=== PATIENT | male | born 1965 | race Caucasian/White ===

== ENCOUNTER 2018-09-01 15:39 | Inpatient (IN) | payer BC, SELFPAY ==
[2018-09-01] VITALS (11 sets, daily range): BP systolic 163–220; BP diastolic 100–129; PULSE 59–84; RESP 14–20; TEMP 36.1–36.4; O2SAT 95–96; BMI 40.6; BMI 40.1; BMI 40.2
--- NOTE | 2018-09-01 16:03 | CT_ITS ---
STUDY: CT BRAIN WITHOUT CONTRAST REASON FOR EXAM: Male, 53 years old. Dizziness RADIATION DOSAGE (If Supplied By Facility): DLP = ( 815.79 ) mGycm TECHNIQUE: Transaxial CT imaging of the brain was performed without administration of intravenous contrast material. Individualized dose optimization techniques were used for this CT. COMPARISON: None. FINDINGS: There is no acute bleed or infarct. There are normal white matter tracts. The ventricles are normal in configuration. There is no hydrocephalus. The visualized paranasal sinuses are clear. The mastoid air cells are well aerated. There is no skull fracture. CT/Brain/Head without Contrast IMPRESSION: No acute intracranial abnormality. Electronically Signed: Sky Sampson, at 16:53 EDT Tel , Service support ,
--- NOTE | 2018-09-01 16:10 | ED.VISSUMM ---
- ER Visit Summary Date of Service: 09/01/18 Chief Complaint: Dizziness History of Present Illness: The patient is a 53 M who complains of dizziness. Started yesterday his family member then noticed that his right eye was deviated outward. He does admit to double vision. He denies any headache, head trauma or LOC. No chest pain or shortness of breath. He has no medical problems, but he has not been to a doctor in many years. He does not wear any corrective lenses. When he was working. He was working outside and felt hot so he drank 2 bottles of water and went to the air conditioning and felt better. Physical Examination: Vital signs reviewed. Well-developed male in no distress. At rest his right eye is deviated outward. His accommodation is intact. He does have bilateral nystagmus on extraocular movement. His heart is regular rate and rhythm. His lungs are clear to auscultation bilaterally. Abdomen soft and nontender. Skin exam reveals no rashes. His neurologic exam other than the eye findings is normal. Test Results: Labs are normal except for potassium 3.1. Glucose 135. CAT scan of the head and CTA of the head is normal. Emergency Department Course and Treatment: The patient does have diplopia, likely caused by the right eye deviation. I spoke with Dr. Karimi with ophthalmology. He recommended the CTA because sometimes he has seen that aneurysms can cause this type of eye deviation. This was obtained and is normal. He also stated a high blood pressure could also cause this. He was given labetalol and his blood pressure came down to 170/110. He still has the ophthalmic symptoms. My concern is that he could have another pathology. I feel he should be admitted for MRI and blood pressure control. I spoke with hospitalist will admit the patient Treatment Plan: [] Disposition: Admit Impression: Diplopia, right eye deviation, hypertensive urgency This note was generated with [employer] dictation software. It may contain incorrect words, spelling, and punctuation that were not noted in review of the chart prior to signing
[2018-09-01 16:27] LABS: Absolute Lymphocyte Count 2.01 X10^3/ul (0.83-4.51); Basophil# 0.02 X10^3/uL; Basophil% 0.2 % (0-1); Eosinophil# 0.12 X10^3/uL; Eosinophils% 1.2 % (0-5); Lymphocyte # 2.01 X10^3/ul (4.0); Lymphocyte % 20.3 % (19-41); Mean Corp Hgb Conc 34.9 g/gl (32-36); Mean Corpuscular Hgb 27.9 pg (27.0-32.0); Mean Corpuscular Volume 80.1 fL (80-94); Mean Platelet Vol. 10.8 fl (6.2-12.0); Monocyte# 0.75 X10^3/uL; Monocyte% 7.6 % (0-10); Neutrophil # 6.98 X10^3/uL (2.7-7.7); Neutrophil % 70.5 % (47-70); Platelet Count 279 K/mm3 (150-450); RBC Distribution Width CV 13.4 % (11.6-14.6); RBC Distribution Width SD 38.8 fl (35.1-43.9); Red Blood Count 5.37 M/mm3 (4.6-6.2); White Blood Count 9.9 K/mm3 (4.4-11.0)
[2018-09-01] MEDS: 0.9% Normal Saline 1,000 ML 1000 ML IV (16:29)
[2018-09-01 16:32] LABS: POSITIVE COUNT NO; POSITIVE DIFFERENTIAL NO; POSITIVE MORPHOLOGY NO
[2018-09-01 16:41] LABS: ALB/GLOB Ratio 0.9 RATIO (0.9-2.4); AST(SGOT) 19 U/L (15-37); Alanine Aminotransfer ALT/SGPT 33 U/L (16-61); Albumin, Serum 3.6 g/dL (3.2-5.0); Alkaline Phosphatase 125 U/L (45-117); Anion Gap 5 (5-15); BUN 12 mg/dL (7-18); BUN/Creat Ratio 12.6 RATIO (10-20); Calcium,Total 8.7 mg/dL (8.5-10.1); Chloride 105 mmol/L (98-107); Creatinine, Serum 0.95 mg/dL (0.70-1.30); EST Glomerular Filtration Rate 88 mL/min (>60); Est Glom Filt Rate - Afr Amer 107 mL/min (>60); Globulin 3.9 g/dL (2.2-4.2); Glucose 135 mg/dL (74-106); Potassium 3.1 mmol/L (3.5-5.1); Protein, Total 7.5 g/dL (6.4-8.2); Sodium Level 137 mmol/L (136-145)
--- NOTE | 2018-09-01 17:07 | CT_ITS ---
STUDY: CTA OF THE BRAIN REASON FOR EXAM: Male, 53 years old. Dizziness. Confusion. Diaphoresis. RADIATION DOSAGE (If Supplied By Facility): CTDIvol = ( 16.52 ) mGy, DLP = ( 406.21 ) mGycm TECHNIQUE: CT angiography was performed with a multi-detector CT scanner. Data acquisition was obtained from the skull base through the vertex following intravenous administration of 100mL IV Isovue 370. MIP images were reconstructed from the axial data set. Post-processing of the angiographic images was performed, with multiplanar reformation and 3D reconstruction. Individualized dose optimization techniques were used for this CT. COMPARISON: CT FINDINGS: Normal bilateral petrous carotid arteries. Normal right cavernous carotid artery with a normal supraclinoid bifurcation. Normal left cavernous carotid artery with a normal supraclinoid bifurcation. Normal right A1 segments of the anterior cerebral artery. Normal left A1 segments of the anterior cerebral artery. Normal intact anterior communicating artery (ACOM). Normal bilateral A2 segments of the anterior cerebral arteries. Normal right M1 and M2 segments of the middle cerebral arteries, with a normal M1 bifurcation. Normal left M1 and M2 segments of the middle cerebral arteries, with a normal M1 bifurcation. There is non-visualization of the right posterior communicating artery (PCOM). There is a persistent origin of the left posterior cerebral artery with absence of the posterior communicating artery (PCOM). Normal bilateral vertebral arteries. Normal basilar artery with a normal basilar bifurcation. The visualized bilateral superior cerebellar (SCA) arteries are normal. Normal bilateral P1, P2 and visualized P3 segments of the posterior cerebral arteries. There is no demonstrated aneurysm of the [place]. There is no demonstrated abnormality of the visualized brain. CT/CTA Head W/WO Contrast IMPRESSION: Normal [place] without a demonstrated aneurysm or hemodynamically significant stenosis. Electronically Signed: Kenneth Benson MD at 18:04 EDT , Service support ,
--- NOTE | 2018-09-01 19:11 | HP.PCM_ITS ---
Problem List (1) Cranial third nerve paralysis, right Status: Acute (2) Hypertensive emergency Status: Acute History of Present Illness Date of Admission: 09/01/18 Chief Complaint: diplopia The patient is a 53 year old M who was in his normal state of health up until yesterday when he started feeling dizzy and just weak overall. Patient was having some diplopia at that time. I was able drink some water and his symptoms resolved and was able to drive back home. Today, symptoms recurred but did not get better despite drinking fluids. Patient was having persistent diplopia. Sent to the emergency room for evaluation. In the emergency room, blood pressure was noted to be 220/129. Patient also had his right eye deviated laterally. He received 20 mg of IV labetalol which did improve his blood pressure into the 180s but still persisted to have diplopia. Dr. Karimi, of ophthalmology, was contacted and advised a CT Ilsa Dai to evaluate for an aneurysm. Patient did have a head CT was negative and a CT angiogram subsequently was also negative. The hospitalist service was contacted for admission for his diplopia and further stroke evaluation. Patient has never had this problem before. Patient denies any concurrent headache at this time but states that he is getting headache with his persistent diplopia. [] Past Medical History Medical History: Medical History (Last Updated 09/01/18 @ 19:15 by Shaquille Louie DO) Psoriasis L40.9 Allergies No Known Allergies Allergy (Verified 09/01/18 15:42) Home Medications: Ambulatory Orders Medication Instructions Recorded NK 09/01/18 Lives: With Family Smoking Status: Never smoker Tobacco Use: Non-smoker Alcohol: None Drugs: None - *Family History Maternal History Items: - - No stroke Review of Systems Constitutional: Reports: Weakness. Denies: Anorexia, Chills, Fever Eyes: Reports: Blurred vision - Does wear reading glasses, Double vision HEENT: Denies: Head Aches, Sinus Congestion, Sinus Drainage Cardiovascular: Denies: Chest Pain, Palpitations Respiratory: Denies: Cough, Shortness of breath at rest, Sputum production Gastrointestinal: Reports: Nausea. Denies: Abdominal Pain, Vomiting Genitourinary: Denies: Dysuria Musculoskeletal: Denies: Joint Pain, Joint Tenderness Skin: Reports: Rash - That may be psoriasis but is never followed up with dermatology. Involves his hands and also his elbows.. Denies: Wounds Neurological: Reports: Blurred vision, Double vision, Numbness - Has some numbness of his right fingertips today. Denies: Balance problems, Change in Speech, Slurred speech Psychiatric: Denies: Anxiety, Depression Endocrine: Denies: Change in Body Habitus, Heat/ Cold Intolerance Hematologic/ Lymphatic: Denies: Easy Bruising, Easy Bleeding, Hx of blood clot Comment: Patient states that he does snore. Patient lives with his mother and states that his mother has witnessed apnea while sleeping. A 10 point review of systems were negative except as mentioned in the history of present illness and the other review of systems. VTE Information - Inpt Only VTE Present on Admission: No VTE Mechan Device Prophylaxis: None VTE Pharm Prophylaxis ordered?: Yes Patient Problems: Active and Suspected Problems Cranial third nerve paralysis, right (Acute) Hypertensive emergency (Acute) - Physical Exam General: Alert, Cooperative, No apparent distress HEENT: Atraumatic, PERRLA, Normocephalic, - - Right eye is deviated down and out. Limited overall movement of his left side but may be related with just diminished sight in that eye. Oral: Moist Mucosa, No Gingival or Mucosal Lesions/ Ulcerations, - - Mallampati stage IV Neck: Negative Carotid Bruits, No Nodes, Thyroid Normal Size and Texture Lungs: Clear to auscultation, Normal air movement, No rhonchi, No wheeze, No rales Cardiovascular: Regular rate, Regular Rhythm, Normal S1, Normal S2, No murmurs Abdomen: Bowel Sounds Present, Soft, Non Tender, Non-Distended, No Hepato- splenomegaly Extremities: No edema, No Calf Tenderness Skin: - - psoriatic lesions noted on his lateral hands. Also some what appears to be some vitiligo involving his hands 2. No psoriatic lesions involving his elbows that I could see Musculoskeletal: No Tenderness to Palpation of Joints or Extremities, No Muscle Wasting Neurological: Cranial nerves II-XII grossly intact - Except right 3rd cranial nerve palsy, Motor Exam 5/5 strength throughout, Sensory exam intact to light touch and pain, Coordination normal Psych/Mental Status: Normal Affect, Appropriate Vital Signs Temp Pulse Resp BP Pulse Ox 36.1 C L 63 19 H 181/107 H 96 09/01/18 15:40 09/01/18 18:45 09/01/18 18:45 09/01/18 18:45 09/01/18 18:45 Oxygen Delivery Method Room Air Weight: 121.3 kg Body Mass Index (BMI) 40.6 Laboratory Tests Past 24 Hrs 09/01/18 09/01/18 16:15 16:15 WBC 9.9 RBC 5.37 Hgb 15.0 Hct 43.0 MCV 80.1 MCH 27.9 MCHC 34.9 RDW 13.4 RDW Differential 38.8 Plt Count 279 MPV 10.8 Immature Gran % (Auto) 0.200 Neut % (Auto) 70.5 H Lymph % (Auto) 20.3 [place] % (Auto) 7.6 Eos % (Auto) 1.2 Baso % (Auto) 0.2 Absolute Neuts (auto) 7.0 Absolute Lymphs (auto) 2.01 Total Counted Not Reportable Sodium 137 Potassium 3.1 L Chloride 105 Carbon Dioxide 27.0 Anion Gap 5 BUN 12 Creatinine 0.95 Estim Creat Clear Calc 87.00 Est GFR (MDRD) Af Amer 107 Est GFR (MDRD) Non-Af 88 BUN/Creatinine Ratio 12.6 Glucose 135 H Calcium 8.7 Total Bilirubin 0.30 AST 19 ALT 33 Alkaline Phosphatase 125 H Total Protein 7.5 Albumin 3.6 Globulin 3.9 Albumin/Globulin Ratio 0.9 Clinical Impression(s) from Imaging Studies Brain CT 09/01/18 16:03 IMPRESSION: No acute intracranial abnormality. Electronically Signed: Sky Sampson at 16:53 EDT Tel , Service support , Head CTA 09/01/18 17:07 IMPRESSION: Normal [place] without a demonstrated aneurysm or hemodynamically significant stenosis. Electronically Signed: Kenneth Benson MD at 18:04 EDT , Service support , Assessment/Plan All Active Problems Cranial third nerve paralysis, right (Acute) Hypertensive emergency (Acute) 1. Cranial nerve III palsy * Unclear if this is related with hypertension or possible stroke * Patient will undergo stroke work-up with an MRI of the brain, MRA of the neck. He does not need an MRI of his head because he already had a CT angiogram of his head. * Start aspirin * The remainder of the stroke work-up including echocardiogram, neurology consultation, physical and occupational therapy evaluate and treat. * He will require bedside swallow evaluation before he can eat 2. Hypertensive emergency * This is being categorizes emergency because of the new neurologic symptoms with his 3rd cranial nerve palsy that he is having * appears improved after 20 mg of labetalol * Will have patient on as needed hydralazine. Hold off on starting any chronic medications until he can find out whether or not he has had a stroke and will permit hypertension up to the 180 until then. * No need for nicardipine drip at this time 3. Suspected obstructive sleep apnea * Patient has mother advised of the risks of sleep apnea, including cardiac abnormalities and even * Advised being established with a primary care provider who will get him plugged into the system so that he can get a polysomnogram and be evaluated for sleep apnea and likely CPAP treatment 4. Psoriasis, suspected * Advised patient to see frame repairer in the coming months for evaluation of the psoriasis. Patient also has some sun exposure as well and is stated to be a good idea for screening purposes to evaluate for melanoma or other types of skin cancer 5. VTE prophylaxis: Moderate risk. Lovenox. Patient has no primary care provider. Prior to discharge patient is to begin some information about someone to whom to follow-up with for primary care services. Code Visit Inpatient E&M: 86116 Init Hosp L3
--- NOTE | 2018-09-01 19:43 | ECHOCS_ITS ---
Reason For Study: TIA/CVA Procedure This was a 2D Doppler, Color Flow transthoracic echocardiogram. The study was technically difficult. Contrast injection was performed. Exam performed portable in patient room. Left Ventricle Normal LV size. Moderate concentric left ventricular hypertrophy. Left ventricular systolic function is normal. The estimated ejection fraction is 65 %. Transmitral doppler flow suggestive of impaired relaxation of left ventricle. No regional wall motion abnormalities noted. Right Ventricle Normal RV size. Normal systolic function. Atria Normal left atrium. Normal right atrium. No doppler evidence for ASD. Bubble contrast study negative for right to left interatrial shunt. Mitral Valve There is no mitral annular calcification. Normal mitral valve. Trivial mitral valve insufficiency. Tricuspid Valve Normal tricuspid valve. Trivial tricuspid valve insufficiency. Right ventricular systolic pressure estimated to be 37 mmHg. Aortic Valve Trisinus/trileaflet aortic valve. Mild focal aortic valve calcification. Pulmonic Valve The pulmonic valve is not well visualized. Great Vessels Normal sized aortic root. Pericardium/Pleural No pericardial effusion. Medication Performed a rapid injection of agitated mix of 9 cc saline and 1cc air to assess for atrial septal defect. Diluted definity 2ml given slow IV push to enhance endocardial definition. MMode/2D Measurements & Calculations LVIDd: 4.9 cm IVSd: 1.4 cm Ao root diam: 3.4 cm LVIDs: 3.3 cm LVPWd: 1.6 cm RVDd: 2.9 cm FS: 32.1 % LAV(MOD-bp): 36.5 ml LVAd ap4: 35.7 cm2 SV(MOD-sp4): 78.2 ml LAV(MOD-bp) Indexed: 15.9 ml/m2 EDV(MOD-sp4): 115.4 ml LAV(MOD-sp2): 40.0 ml EDV(sp4-el): 120.5 ml LAV(MOD-sp4): 29.3 ml LVAs ap4: 17.5 cm2 ESV(MOD-sp4): 37.2 ml ESV(sp4-el): 37.1 ml EF(MOD-sp4): 67.8 % EF(sp4-el): 69.2 % SV(sp4-el): 83.5 ml LA A4 area: 12.8 cm2 LA dimension(2D): 4.1 cm RA A4 area: 6.2 cm2 Doppler Measurements & Calculations MV E max jerry: 81.9 cm/sec Lat Peak E' Jerry: 9.6 cm/sec Med Peak E' Jerry: 5.6 cm/sec MV A max jerry: 106.0 cm/sec E/E' lat: 8.5 E/E' med: 14.6 MV E/A: 0.77 Ao V2 max: 170.8 cm/sec LV V1 max: 147.1 cm/sec PA V2 max: 114.0 cm/sec Ao max P.7 mmHg LV V1 max P.7 mmHg Ao V2 mean: 116.3 cm/sec Ao mean P.1 mmHg Ao V2 VTI: 28.3 cm TR max jerry: 289.9 cm/sec TR max P.6 mmHg Interpretation Summary The study was technically difficult. Contrast injection was performed. Left ventricular systolic function is normal. The estimated ejection fraction is 65 %. Moderate concentric left ventricular hypertrophy. Trivial mitral valve insufficiency. Trivial tricuspid valve insufficiency. Mild focal aortic valve calcification. Right ventricular systolic pressure estimated to be 37 mmHg. Transmitral doppler flow suggestive of impaired relaxation of left ventricle Bubble contrast study negative for right to left interatrial shunt. Ordering Physician: Shaquille Louie Performed By: Lina Shah, MARLENE, RVT
[2018-09-01] MEDS: hydrALAZINE 20 MG/ML Vial 10 MG IV (21:28)
[2018-09-01] MEDS: 0.9% NaCl Peripheral Flush Adult/Peds IV ×2 (21:28→21:30)
[2018-09-01] MEDS: Atorvastatin Calcium 80 MG Tablet PO (21:28)
[2018-09-01] MEDS: Ondansetron 4 MG/2 ML Vial IV (21:28)
[2018-09-01] MEDS: Aspirin 325 MG Tablet PO (21:28)
[2018-09-01 21:41] LABS: Bedside Glucose 138 mg/dL (70-110)
[2018-09-02] VITALS (15 sets, daily range): BP systolic 160–210; BP diastolic 96–118; PULSE 59–91; RESP 18–20; TEMP 36.4–37.1; O2SAT 94–97; BMI 40.1
[2018-09-02 06:21] LABS: ALB/GLOB Ratio 0.9 RATIO (0.9-2.4); AST(SGOT) 20 U/L (15-37); Alanine Aminotransfer ALT/SGPT 33 U/L (16-61); Albumin, Serum 3.4 g/dL (3.2-5.0); Alkaline Phosphatase 107 U/L (45-117); Anion Gap 10 (5-15); BUN 12 mg/dL (7-18); BUN/Creat Ratio 14.6 RATIO (10-20); Calcium,Total 8.8 mg/dL (8.5-10.1); Chloride 105 mmol/L (98-107); Cholesterol 188 mg/dL (200); Creatinine, Serum 0.82 mg/dL (0.70-1.30); EST Glomerular Filtration Rate 104 mL/min (>60); Est Glom Filt Rate - Afr Amer 125 mL/min (>60); Estimated Creatinine Clearance 100.79 ml/min; Globulin 3.8 g/dL (2.2-4.2); Glucose 109 mg/dL (74-106); High Density Lipoprotein 47 mg/dL; Magnesium 2.2 mg/dL (1.6-2.6); Potassium 3.8 mmol/L (3.5-5.1); Protein, Total 7.2 g/dL (6.4-8.2); Sodium Level 141 mmol/L (136-145); Thyroid Stim Hormone (TSH) 2.65 uIU/mL (0.358-3.74); Triglycerides 114 mg/dL; Very Low Density Lipoprotein 23 mg/dL (5-40)
[2018-09-02 06:46] LABS: Bedside Glucose 105 mg/dL (70-110)
--- NOTE | 2018-09-02 08:30 | MRI_ITS ---
STUDY: MRI BRAIN WITH AND WITHOUT CONTRAST REASON FOR EXAM: Male, 53 years old. 3rd nerve palsy with right eye diplopia clear. TECHNIQUE: Standardized multiplanar fat and water weighted pulse sequences were obtained. 24 IV Dotarem was administered for the contrast portion of the examination. COMPARISON: None. FINDINGS: Normal size of the ventricles and extra-axial spaces for the patient's age. There are a limited number of small white matter hyperintensities, distributed throughout the deep white matter tracts of the cerebral hemispheres, consistent with mild chronic white matter ischemic changes. There is no evidence for recent intracranial ischemia or other cause of cytotoxic edema on diffusion weighted imaging (DWI). Normal T2* images of the brain without demonstrated susceptibility artifact. There is no demonstrated hemosiderin stain. Normal bilateral basal ganglia. Normal thalami. There is no extra-axial fluid accumulation. Normal flow voids within the major intracranial circulation suggesting patency by spin echo criteria. Normal venous enhancement. There is no enhancing intra-axial or extra-axial abnormality. Normal sella turcica, pituitary gland, infundibular stalk, optic chiasm and hypothalamus. Normal tectal plate and pineal gland. Normal midbrain, haley and medulla. Normal cerebellum. Normal basal cisterns. Normal bilateral temporal bones. Normal bilateral internal auditory canals. No demonstrated orbital abnormality, within the constraints of a routine brain study. Normal visualized paranasal sinuses. Normal calvarium and skull base. Normal visualized soft tissue structures. Normal visualized upper cervical spine. IMPRESSION: No evidence of acute intracranial bleed, mass or ischemia. Electronically Signed: Lewis Mcnamara DO at 12:20 EDT , Service support , STUDY: MRI ORBITS WITH AND WITHOUT CONTRAST REASON FOR EXAM: Male, 53 years old. 3rd nerve palsy with right eye diplopia. TECHNIQUE: Standardized fat and water weighted pulse sequences were obtained in all 3 orthogonal planes, pre-and post contrast administration. was administered for the contrast portion of the examination. COMPARISON: None. FINDINGS: Normal bilateral globes. Normal bilateral optic nerve sheath complexes and optic nerves. Normal bilateral intraconal and extraconal spaces. Normal bilateral extraocular muscles. Normal optic chiasm and post-chiasmatic tracts. Normal sella turcica, pituitary gland, infundibular stalk, and hypothalamus. Normal bilateral cavernous sinuses. Normal tectal plate and pineal gland. Normal flow voids within the major intracranial circulation suggesting patency by spin echo criteria. Normal size of the ventricles and extra-axial spaces for the patient's age. Normal white matter tracts of the supratentorial brain. Normal bilateral basal ganglia. Normal thalami. There is no extra-axial fluid accumulation. Normal midbrain, haley and medulla. Normal cerebellum. Normal basal cisterns. MRI/Brain W/WO Contrast IMPRESSION: No evidence of lesion or enhancement within the course of the bilateral oculomotor nerves. No evidence of abnormal enhancement or lesion within the region of the orbits. Electronically Signed: Lewis Mcnamara DO at 12:19 EDT , Service support ,
--- NOTE | 2018-09-02 08:30 | MRI_ITS ---
STUDY: MRA NECK WITH AND WITHOUT CONTRAST REASON FOR EXAM: Male, 53 years old. 3rd nerve palsy. TECHNIQUE: 3-D [id number] (TOF) imaging was performed in an 1.5 T MRI scanner. 24 IV Dotarem was administered for the contrast enhanced images. COMPARISON: None. FINDINGS: RIGHT CAROTID ARTERIES: Normal right common carotid artery (CCA). Normal right common carotid bulb. Normal origin of the right internal carotid (ICA) artery without a hemodynamically significant stenosis. Normal visualized cervical portion of the right internal carotid artery. Normal origin of the right external carotid artery (ECA). LEFT CAROTID ARTERIES: Normal left common carotid artery (CCA). Normal left common carotid bulb. Normal origin of the left internal carotid (ICA) artery without a hemodynamically significant stenosis. Normal visualized cervical portion of the left internal carotid artery. Normal origin of the left external carotid artery (ECA). VERTEBRAL ARTERIES: Normal antegrade flow within the bilateral vertebral artery without a hemodynamically significant stenosis. MRI/MRA Neck WITH and W/O Contrast IMPRESSION: No evidence of significant steno-occlusive disease or aneurysm. Electronically Signed: Lewis Mcnamara DO at 13:08 EDT , Service support ,
[2018-09-02] MEDS: hydrALAZINE 20 MG/ML Vial 10 MG IV (10:04)
[2018-09-02] MEDS: Aspirin 81 MG TAB.CHEW PO (10:06)
[2018-09-02] MEDS: 0.9% NaCl Peripheral Flush Adult/Peds IV (10:06)
[2018-09-02] MEDS: Enoxaparin 40 MG/0.4 ML Syringe SC (10:06)
--- NOTE | 2018-09-02 11:30 | NURSING ---
[facility] late d/t pt being off unit @ MRI
[2018-09-02 11:56] LABS: Bedside Glucose 117 mg/dL (70-110)
--- NOTE | 2018-09-02 12:44 | PCM.CONS.GEN ---
Problem List (1) Diplopia Status: Acute (2) Dizziness Status: Acute Reason for Consult Date of Consultation: 09/02/18 Reason for Consultation: Dizziness and diplopia History of Present Illness: The patient is a 53 year old M with PMH HTN (not on medications), morbid obesity, psoriasis admitted with dizziness and diplopia. Per patient he started noticing some dizziness where he would feel funny and lightheaded followed by diplopia 2 days ago starting 08/31/2018, later his symptoms improved but then again he felt dizziness and diplopia yesterday 09/01/2018 following which he was admitted to the hospital. He denies any headache, fever, neck stiffness, focal motor weakness, facial weakness, sensory loss, speech disturbances or vision loss. Per ED and hospitalist documentation on admission patient was noticed to have right eye deviated outside with possible 3rd nerve palsy. At present patient does not have any cranial nerve palsy on examination and per patient his diplopia is much better. He was found to have uncontrolled high blood pressure with SBP > 210 mmHg since admission. Per brother and mother he is noncompliant with his blood pressure medications, per mother he does snore a lot and also stops breathing at night while sleeping. Per patient he mostly lives with his mother, denies any frequent falls and balance issues, does not use a cane or walker to ambulate, and does drive. CTA head done on admission did not show any aneurysms or hemodynamically significant stenosis or occlusion. MRI brain did not show any acute stroke. HbA1c 6, LDL 118. [] Past Medical History Medical History: Medical History (Last Updated 09/01/18 @ 19:15 by Shaquille Louie DO) Psoriasis L40.9 Allergies No Known Allergies Allergy (Verified 09/01/18 15:42) Home Medications: Ambulatory Orders Medication Instructions Recorded NK 09/01/18 Lives: With Family Smoking Status: Never smoker Tobacco Use: Non-smoker Alcohol: None Drugs: None - *Family History Maternal History Items: - - No stroke Review of Systems Constitutional: Reports: - - Complete ROS negative except as documented in HPI Patient Problems: Active and Suspected Problems (Last Updated 09/01/18 @ 19:15 by Shaquille Louie DO) Cranial third nerve paralysis, right (Acute) Hypertensive emergency (Acute) Diplopia (Acute) Dizziness (Acute) - Physical Exam General: Alert HEENT: Normocephalic Neck: Supple Lungs: Clear to auscultation Cardiovascular: Normal S1, Normal S2 Abdomen: Bowel Sounds Present Extremities: No cyanosis Neurological: - - Conscious, alert, AoAX3, CN 2-12 grossly intact, ?some left 6th nerve palsy, power 5/5 all 4 extremities, no sensory loss, no cerebellar signs, Reflexes + B/L B/S/T/K/A, gait deferred, NO NR Psych/Mental Status: Normal Affect Vital Signs Temp Pulse Resp BP Pulse Ox 97.7 F L 80 18 210/99 H 94 09/02/18 10:00 09/02/18 10:04 09/02/18 10:00 09/02/18 10:50 09/02/18 10:00 Oxygen Delivery Method Room Air Weight: 119.9 kg Body Mass Index (BMI) 40.1 Intake and Output for Last 24 Hours 08/31/18 09/01/18 09/02/18 23:59 23:59 23:59 Intake Total 120 / 120 Balance 120 / 120 Laboratory Tests Past 24 Hrs 09/01/18 09/01/18 09/02/18 16:15 16:15 05:20 WBC 9.9 RBC 5.37 Hgb 15.0 Hct 43.0 MCV 80.1 MCH 27.9 MCHC 34.9 RDW 13.4 RDW Differential 38.8 Plt Count 279 MPV 10.8 Immature Gran % (Auto) 0.200 Neut % (Auto) 70.5 H Lymph % (Auto) 20.3 Doddridge % (Auto) 7.6 Eos % (Auto) 1.2 Baso % (Auto) 0.2 Absolute Neuts (auto) 7.0 Absolute Lymphs (auto) 2.01 Total Counted Not Reportable Sodium 137 141 Potassium 3.1 L 3.8 Chloride 105 105 Carbon Dioxide 27.0 26.0 Anion Gap 5 10 BUN 12 12 Creatinine 0.95 0.82 Estim Creat Clear Calc 87.00 100.79 Est GFR (MDRD) Af Amer 107 125 Est GFR (MDRD) Non-Af 88 104 BUN/Creatinine Ratio 12.6 14.6 Glucose 135 H 109 H Hemoglobin A1c Calcium 8.7 8.8 Magnesium 2.2 Total Bilirubin 0.30 0.60 AST 19 20 ALT 33 33 Alkaline Phosphatase 125 H 107 Total Protein 7.5 7.2 Albumin 3.6 3.4 Globulin 3.9 3.8 Albumin/Globulin Ratio 0.9 0.9 Triglycerides 114 Cholesterol 188 LDL Cholesterol 118 VLDL Cholesterol 23 HDL Cholesterol 47 TSH 2.65 09/02/18 05:20 WBC RBC Hgb Hct MCV MCH MCHC RDW RDW Differential Plt Count MPV Immature Gran % (Auto) Neut % (Auto) Lymph % (Auto) Doddridge % (Auto) Eos % (Auto) Baso % (Auto) Absolute Neuts (auto) Absolute Lymphs (auto) Total Counted Sodium Potassium Chloride Carbon Dioxide Anion Gap BUN Creatinine Estim Creat Clear Calc Est GFR (MDRD) Af Amer Est GFR (MDRD) Non-Af BUN/Creatinine Ratio Glucose Hemoglobin A1c 6.0 Calcium Magnesium Total Bilirubin AST ALT Alkaline Phosphatase Total Protein Albumin Globulin Albumin/Globulin Ratio Triglycerides Cholesterol LDL Cholesterol VLDL Cholesterol HDL Cholesterol TSH POC Glucose 09/02/18 09/02/18 09/01/18 11:53 06:38 21:26 POC Glucose 117 H 105 138 H Assessment/Plan All Active Problems (Last Updated 09/01/18 @ 19:15 by Shaquille Louie DO) Cranial third nerve paralysis, right (Acute) Hypertensive emergency (Acute) Diplopia (Acute) Dizziness (Acute) The patient is a 53 year old M with PMH HTN (not on medications), morbid obesity, psoriasis admitted with dizziness and diplopia. Per patient he started noticing some dizziness where he would feel funny and lightheaded followed by diplopia 2 days ago starting 08/31/2018, later his symptoms improved but then again he felt dizziness and diplopia yesterday 09/01/2018 following which he was admitted to the hospital. He denies any headache, fever, neck stiffness, focal motor weakness, facial weakness, sensory loss, speech disturbances or vision loss. Per ED and hospitalist documentation on admission patient was noticed to have right eye deviated outside with possible 3rd nerve palsy. At present patient does not have any cranial nerve palsy on examination and per patient his diplopia is much better. He was found to have uncontrolled high blood pressure with SBP > 210 mmHg since admission. Per brother and mother he is noncompliant with his blood pressure medications, per mother he does snore a lot and also stops breathing at night while sleeping. Per patient he mostly lives with his mother, denies any frequent falls and balance issues, does not use a cane or walker to ambulate, and does drive. CTA head done on admission did not show any aneurysms or hemodynamically significant stenosis or occlusion. MRI brain did not show any acute stroke. HbA1c 6, LDL 118. Impression Diplopia, dizziness-left 6th nerve palsy Uncontrolled hypertension, hypertensive urgency Plan ?MRI brain and CTA head reviewed?no acute stroke or aneurysm/stenosis or occlusion ?Better blood pressure control with goal blood pressure less than 130/80 mmHg. Will defer to the primary team. Patient was counseled to be compliant with blood pressure medications. He understands the same ?Await TTE ?Check acetylcholine receptor binding blocking and modulating antibodies, Lyme's antibody and EVA level. ?Polysomnography testing as outpatient to rule out sleep apnea ?GI/DVT prophylaxis ?PT/OT ?Fall precautions ?Further medical management per hospitalist team ?Follow-up with neurology as outpatient in 4 weeks ?Please call with questions if any ?Thank you for allowing us to participate in patient's care and management Code Visit Inpatient E&M: [id number] Init Hosp L3
--- NOTE | 2018-09-02 13:34 | PCM.PROGNOTE ---
<Nael Lopez - Last Filed: 09/02/18 13:34> Patient Problems: Active and Suspected Problems (Last Updated 09/01/18 @ 19:15 by Shaquille Louie DO) Cranial third nerve paralysis, right (Acute) Hypertensive emergency (Acute) Diplopia (Acute) Dizziness (Acute) Subjective: Ongoing right eye with passive abduction, drift when both eyes examined. Patch in place. Stroke workup negative. No focal weakness, numbness or tingling, slurred speech, facial droop. BP is still poor. Will start BP meds. No CP. No HICKMAN. No palp. - Physical Exam General: Alert, Oriented x3, Cooperative HEENT: Atraumatic, PERRLA, Normocephalic Neck: Supple, No JVD, Negative Carotid Bruits Lungs: Clear to auscultation, Normal air movement Cardiovascular: Regular rate, No murmurs Abdomen: Bowel Sounds Present, Soft, Non Tender Extremities: No edema, Capillary Refill Less than 3 Seconds Skin: No rashes, No breakdown Musculoskeletal: No Tenderness to Palpation of Joints or Extremities Neurological: Cranial nerves II-XII grossly intact, - - right eye lateral drift. Psych/Mental Status: Normal Affect, Appropriate Vital Signs Temp Pulse Resp BP Pulse Ox 97.7 F L 80 18 200/110 H 94 09/02/18 10:00 09/02/18 10:04 09/02/18 10:00 09/02/18 12:10 09/02/18 10:00 Oxygen Delivery Method Room Air Weight: 264 lb 5.348 oz Body Mass Index (BMI) 40.1 Intake and Output for Last 24 Hours 08/31/18 09/01/18 09/02/18 23:59 23:59 23:59 Intake Total 120 / 120 120 / 120 Balance 120 / 120 120 / 120 Laboratory Tests Past 24 Hrs 09/01/18 09/01/18 09/02/18 16:15 16:15 05:20 WBC 9.9 RBC 5.37 Hgb 15.0 Hct 43.0 MCV 80.1 MCH 27.9 MCHC 34.9 RDW 13.4 RDW Differential 38.8 Plt Count 279 MPV 10.8 Immature Gran % (Auto) 0.200 Neut % (Auto) 70.5 H Lymph % (Auto) 20.3 Potter % (Auto) 7.6 Eos % (Auto) 1.2 Baso % (Auto) 0.2 Absolute Neuts (auto) 7.0 Absolute Lymphs (auto) 2.01 Total Counted Not Reportable Sodium 137 141 Potassium 3.1 L 3.8 Chloride 105 105 Carbon Dioxide 27.0 26.0 Anion Gap 5 10 BUN 12 12 Creatinine 0.95 0.82 Estim Creat Clear Calc 87.00 100.79 Est GFR (MDRD) Af Amer 107 125 Est GFR (MDRD) Non-Af 88 104 BUN/Creatinine Ratio 12.6 14.6 Glucose 135 H 109 H Hemoglobin A1c Calcium 8.7 8.8 Magnesium 2.2 Total Bilirubin 0.30 0.60 AST 19 20 ALT 33 33 Alkaline Phosphatase 125 H 107 Total Protein 7.5 7.2 Albumin 3.6 3.4 Globulin 3.9 3.8 Albumin/Globulin Ratio 0.9 0.9 Triglycerides 114 Cholesterol 188 LDL Cholesterol 118 VLDL Cholesterol 23 HDL Cholesterol 47 Angiotensin Convert Enz TSH 2.65 Acetylcholine Recept Ab Acetylchol Rcpt Block Ab Acetylchol Rcpt Modu Ab Lyme Total Antibody 09/02/18 09/02/18 05:20 13:15 WBC RBC Hgb Hct MCV MCH MCHC RDW RDW Differential Plt Count MPV Immature Gran % (Auto) Neut % (Auto) Lymph % (Auto) Potter % (Auto) Eos % (Auto) Baso % (Auto) Absolute Neuts (auto) Absolute Lymphs (auto) Total Counted Sodium Potassium Chloride Carbon Dioxide Anion Gap BUN Creatinine Estim Creat Clear Calc Est GFR (MDRD) Af Amer Est GFR (MDRD) Non-Af BUN/Creatinine Ratio Glucose Hemoglobin A1c 6.0 Calcium Magnesium Total Bilirubin AST ALT Alkaline Phosphatase Total Protein Albumin Globulin Albumin/Globulin Ratio Triglycerides Cholesterol LDL Cholesterol VLDL Cholesterol HDL Cholesterol Angiotensin Convert Enz Pending TSH Acetylcholine Recept Ab Pending Acetylchol Rcpt Block Ab Pending Acetylchol Rcpt Modu Ab Pending Lyme Total Antibody Pending POC Glucose 09/02/18 09/02/18 09/01/18 11:53 06:38 21:26 POC Glucose 117 H 105 138 H Medical Necessity - Tobacco Use Smoking Status: Never smoker Tobacco Use: Non-smoker Assessment/Plan All Active Problems (Last Updated 09/01/18 @ 19:15 by Shaquille Louie DO) Cranial third nerve paralysis, right (Acute) Hypertensive emergency (Acute) Diplopia (Acute) Dizziness (Acute) 1. 3rd cranial nerve palsy - stroke ruled out. Likely 2/2 poorly controlled BP. Neuro following. CT brain, MRI brain, MRA/CTA neck/head negative. Initiate BP regimen. TSH normal. EVA level pending. Acetylcholine antibody panel pending. Lyme antibody pending. 2. HTN emergency - start Lisinopril/HCTZ, trend and adjust as needed. PRN hydralazine 3. Prediabetes with morbid obesity - A1C 6.0. Health Services Director navarro ordered. Needs diet/lifestyle modification and repeat a1c in 3-4 months. On TID insulin. DVT ppx: lovenox DC planning: Trend BP overnight, likely home tomorrow. Needs PCP. This patient was seen by Nael Lopez PA-C under the supervision of Dr. George. <Francisca George - Last Filed: 09/02/18 14:57> - Physical Exam Vital Signs Temp Pulse Resp BP Pulse Ox 97.7 F L 80 18 200/110 H 94 09/02/18 10:00 09/02/18 10:04 09/02/18 10:00 09/02/18 12:10 09/02/18 10:00 Oxygen Delivery Method Room Air Weight: 119.9 kg Body Mass Index (BMI) 40.1 Intake and Output for Last 24 Hours 08/31/18 09/01/18 09/02/18 23:59 23:59 23:59 Intake Total 120 / 120 120 / 120 Balance 120 / 120 120 / 120 Laboratory Tests Past 24 Hrs 09/01/18 09/01/18 09/02/18 16:15 16:15 05:20 WBC 9.9 RBC 5.37 Hgb 15.0 Hct 43.0 MCV 80.1 MCH 27.9 MCHC 34.9 RDW 13.4 RDW Differential 38.8 Plt Count 279 MPV 10.8 Immature Gran % (Auto) 0.200 Neut % (Auto) 70.5 H Lymph % (Auto) 20.3 Potter % (Auto) 7.6 Eos % (Auto) 1.2 Baso % (Auto) 0.2 Absolute Neuts (auto) 7.0 Absolute Lymphs (auto) 2.01 Total Counted Not Reportable Sodium 137 141 Potassium 3.1 L 3.8 Chloride 105 105 Carbon Dioxide 27.0 26.0 Anion Gap 5 10 BUN 12 12 Creatinine 0.95 0.82 Estim Creat Clear Calc 87.00 100.79 Est GFR (MDRD) Af Amer 107 125 Est GFR (MDRD) Non-Af 88 104 BUN/Creatinine Ratio 12.6 14.6 Glucose 135 H 109 H Hemoglobin A1c Calcium 8.7 8.8 Magnesium 2.2 Total Bilirubin 0.30 0.60 AST 19 20 ALT 33 33 Alkaline Phosphatase 125 H 107 Total Protein 7.5 7.2 Albumin 3.6 3.4 Globulin 3.9 3.8 Albumin/Globulin Ratio 0.9 0.9 Triglycerides 114 Cholesterol 188 LDL Cholesterol 118 VLDL Cholesterol 23 HDL Cholesterol 47 Angiotensin Convert Enz TSH 2.65 Acetylcholine Recept Ab Acetylchol Rcpt Block Ab Acetylchol Rcpt Modu Ab Lyme Total Antibody 09/02/18 09/02/18 05:20 13:15 WBC RBC Hgb Hct MCV MCH MCHC RDW RDW Differential Plt Count MPV Immature Gran % (Auto) Neut % (Auto) Lymph % (Auto) Potter % (Auto) Eos % (Auto) Baso % (Auto) Absolute Neuts (auto) Absolute Lymphs (auto) Total Counted Sodium Potassium Chloride Carbon Dioxide Anion Gap BUN Creatinine Estim Creat Clear Calc Est GFR (MDRD) Af Amer Est GFR (MDRD) Non-Af BUN/Creatinine Ratio Glucose Hemoglobin A1c 6.0 Calcium Magnesium Total Bilirubin AST ALT Alkaline Phosphatase Total Protein Albumin Globulin Albumin/Globulin Ratio Triglycerides Cholesterol LDL Cholesterol VLDL Cholesterol HDL Cholesterol Angiotensin Convert Enz Pending TSH Acetylcholine Recept Ab Pending Acetylchol Rcpt Block Ab Pending Acetylchol Rcpt Modu Ab Pending Lyme Total Antibody Pending POC Glucose 09/02/18 09/02/18 09/01/18 11:53 06:38 21:26 POC Glucose 117 H 105 138 H Assessment/Plan This patient was seen in conjunction with TORITO Downing. I have independently interviewed and examined the patient and reviewed pertinent historical, laboratory, and other data. Please refer to TORITO Downing note for his patient's presentation, findings, and recommendations. I have reviewed and his note and concur with his documentation He was seen and examined. Still has an eye patch. Complains of the diplopia is slightly better. Denies any other complaints MRI of the head is negative. Head CT and MRA of the neck is unremarkable Blood pressure is uncontrolled Review of systems is negative Physical Exam: Gen: Looks in some discomfort, not pale, not jaundiced, obese CVS:HS I +II, regular, no murmurs RESP: Diminished at lung bases GI: BS present and normal, soft, nontender, no palpable organs EXT:No edema ASSESSMENT: 1. Diplopia/3rd cranial nerve palsy 2. Accelerated hypertension 3. Morbid obesity Plan: Blood pressure controlled today Monitor vitalss Code Visit Inpatient E&M: 66765 Subs Hosp L2
--- NOTE | 2018-09-02 13:50 | CASEMGMT ---
RN BRENT Face to Face with patient for initial transition planning/care coordination assessment. RN CM introduced self and role at [facility]. Patient lying in bed, alert and oriented. Patient willing to participate in assessment and is able to answer all questions appropriately. Care providers, pharmacy, and demographics verified. Patient wishes to discharge home, denies need for home health at this time. Patient states he has no further needs or concerns at this time. CM to follow for discharge planning needs that may arise. PCP: No PCP, patient states his mother is setting up appt with Dr. Shaquille Gregg to get established. Specialists: None Preferred Pharmacy: [facility] Insurance: [email or web address] Prescription Benefit: yes Living Will/HPOA: none LNOK: mother, brother Living Arrangements: Patient lives alone in 1 story home with 1 step to enter the home. Transportation: self/family DME/HHC: Patient denies any DME or previous HHC Disposition Plan: Patient to discharge home with family support and follow-up plans in place. Cheyenne ANDERS, RN, CM
[2018-09-02] MEDS: hydroCHLOROthiazide 12.5mg 12.5 MG PO (14:49)
[2018-09-02] MEDS: Lisinopril 20 MG Tablet PO (14:49)
[2018-09-02] MEDS: Atorvastatin Calcium 80 MG Tablet PO (21:52)
[2018-09-03] VITALS (10 sets, daily range): BP systolic 156–168; BP diastolic 94–115; PULSE 62–80; RESP 16–18; TEMP 36.3–36.7; O2SAT 92–98
--- NOTE | 2018-09-03 | CYSPIN_PTH ---
PATIENT: ALEC MITCHELL LOC: [facility] U#:[id number] AGE/SX: 53/M ROOM: [facility] RE09/01/[address]: Dr. Isabel Del Angel DO : 1965 BED: 1 DIS: 09/09/2018 SPEC #: [id number] RECD: 09/05/18 09:53 STATUS: PABLO REQ #: [id number] NATALYA: 09/03/18 00:[address]: Isabel Del Angel DEPT: CYTOLOGY RECD BY: Tomás Lucas ENTERED: 09/05/18 09:54 SP TYPE: CYSPIN FL OTHR DR: DO Dr. Darnell Gamboa MD Dr. Robert Leininger, MD Dr. Scott Steiner, MD No Primary Care Phys Tissues: Cerebrospinal Fluid Procedures: Pap Stain (control) Special Stain Group II Cytospin Fluid HEADER OPERATION: Lumbar puncture PRE-OP DIAGNOSIS: Right cranial nerve III palsy TISSUE SUBMITTED: Cerebrospinal fluid for cytology DIAGNOSIS CYTOLOGY Cerebrospinal fluid for cytology (cytospin): Paucicellular specimen. Negative for malignant cells. CARLOS:terrance 09/06/18 CYTOLOGY STUDY Slides are reviewed. CYTOLOGY GROSS Received is 2 ml of clear colorless fluid labeled with the patient's name and and designated per the requisition as CSF. Submitted for cytology preparation. / 09/05/18 TC:4 CPT: 91776
[2018-09-03 07:29] LABS: Anion Gap 9 (5-15); BUN 21 mg/dL (7-18); BUN/Creat Ratio 22.5 RATIO (10-20); Calcium,Total 9.3 mg/dL (8.5-10.1); Chloride 102 mmol/L (98-107); Creatinine, Serum 0.93 mg/dL (0.70-1.30); EST Glomerular Filtration Rate 90 mL/min (>60); Est Glom Filt Rate - Afr Amer 109 mL/min (>60); Estimated Creatinine Clearance 88.87 ml/min; Glucose 105 mg/dL (74-106); Potassium 3.8 mmol/L (3.5-5.1); Sodium Level 138 mmol/L (136-145)
[2018-09-03] MEDS: hydroCHLOROthiazide 12.5mg 12.5 MG PO (07:42)
[2018-09-03] MEDS: Aspirin 81 MG TAB.CHEW PO (07:42)
[2018-09-03] MEDS: Enoxaparin 40 MG/0.4 ML Syringe SC (07:43)
[2018-09-03] MEDS: Lisinopril 20 MG Tablet PO (07:43)
[2018-09-03] MEDS: hydroCHLOROthiazide 25 MG Tablet PO (10:13)
--- NOTE | 2018-09-03 10:18 | PCM.PN.NEU ---
Patient Problems: Active and Suspected Problems (Last Updated 09/01/18 @ 19:15 by Shaquille Louie DO) Cranial third nerve paralysis, right (Acute) Hypertensive emergency (Acute) Diplopia (Acute) Dizziness (Acute) Subjective: No issues overnight. Per patient he continues to have some diplopia and dizziness and also complains of some tingling in the right hand fingers. Denies any severe headache, neck pain or radicular symptoms. At present on examination patient has left 6th nerve palsy. - Physical Exam General: Alert HEENT: Normocephalic Neck: Supple Lungs: Normal air movement Cardiovascular: Normal S1, Normal S2 Abdomen: Bowel Sounds Present Extremities: No cyanosis Neurological: - - Conscious, alert, CN?? Mild ptosis left eye, left 6th nerve palsy, pupils PERRLA, power 5 x 5 both upper and lower extremities, no sensory loss noted, no cerebellar signs,Reflexes + B/L B/S/T/K/A, plantars bilateral flexor, gait deferred,, no NR Psych/Mental Status: Normal Affect Vital Signs Temp Pulse Resp BP Pulse Ox 98.0 F 62 18 168/107 H 98 09/03/18 10:11 09/03/18 10:11 09/03/18 10:11 09/03/18 10:11 09/03/18 10:11 Oxygen Delivery Method Room Air Weight: 119.9 kg Body Mass Index (BMI) 40.1 Intake and Output for Last 24 Hours 09/01/18 09/02/18 09/03/18 23:59 23:59 23:59 Intake Total 120 / 120 580 / 580 Balance 120 / 120 580 / 580 Laboratory Tests Past 24 Hrs 09/02/18 09/03/18 13:15 06:13 Sodium 138 Potassium 3.8 Chloride 102 Carbon Dioxide 27.0 Anion Gap 9 BUN 21 H Creatinine 0.93 Estim Creat Clear Calc 88.87 Est GFR (MDRD) Af Amer 109 Est GFR (MDRD) Non-Af 90 BUN/Creatinine Ratio 22.5 H Glucose 105 Calcium 9.3 Angiotensin Convert Enz Pending Acetylcholine Recept Ab Pending Acetylchol Rcpt Block Ab Pending Acetylchol Rcpt Modu Ab Pending Lyme Total Antibody Pending POC Glucose 09/02/18 11:53 POC Glucose 117 H Medical Necessity - Tobacco Use Smoking Status: Never smoker Tobacco Use: Non-smoker Assessment/Plan All Active Problems (Last Updated 09/01/18 @ 19:15 by Shaquille Louie, ) Cranial third nerve paralysis, right (Acute) Hypertensive emergency (Acute) Diplopia (Acute) Dizziness (Acute) The patient is a 53 year old M with PMH HTN (not on medications), morbid obesity, psoriasis admitted with dizziness and diplopia. Per patient he started noticing some dizziness where he would feel funny and lightheaded followed by diplopia 2 days ago starting 08/31/2018, later his symptoms improved but then again he felt dizziness and diplopia yesterday 09/01/2018 following which he was admitted to the hospital. He denies any headache, fever, neck stiffness, focal motor weakness, facial weakness, sensory loss, speech disturbances or vision loss. Per ED and hospitalist documentation on admission patient was noticed to have right eye deviated outside with possible 3rd nerve palsy. At present patient does not have any cranial nerve palsy on examination and per patient his diplopia is much better. He was found to have uncontrolled high blood pressure with SBP > 210 mmHg since admission. Per brother and mother he is noncompliant with his blood pressure medications, per mother he does snore a lot and also stops breathing at night while sleeping. Per patient he mostly lives with his mother, denies any frequent falls and balance issues, does not use a cane or walker to ambulate, and does drive. CTA head done on admission did not show any aneurysms or hemodynamically significant stenosis or occlusion. MRI brain did not show any acute stroke. HbA1c 6, LDL 118. Impression Diplopia, dizziness-? Mild left eye ptosis, left 6th nerve palsy Uncontrolled hypertension, hypertensive urgency Plan ?MRI brain and CTA head reviewed?no acute stroke or aneurysm/stenosis or occlusion ?Better blood pressure control with goal blood pressure less than 130/80 mmHg. Will defer to the primary team. Patient was counseled to be compliant with blood pressure medications. He understands the same ?TTE-EF 65%, normal LA size, no PFO -Check paraneoplastic ab and west Nile AB -Check LP- CSF cell count, protein, glucose, Lyme, EVA, HSV/EBV/CMV PCR ?Check acetylcholine receptor binding blocking and modulating antibodies, Lyme's antibody and EVA level. ?Polysomnography testing as outpatient to rule out sleep apnea ?GI/DVT prophylaxis ?PT/OT ?Fall precautions ?Further medical management per hospitalist team ?Follow-up with neurology as outpatient in 4 weeks ?Please call with questions if any ?Thank you for allowing us to participate in patient's care and management
--- NOTE | 2018-09-03 14:25 | PCM.PROGNOTE ---
<Nael Lopez - Last Filed: 09/03/18 14:25> Patient Problems: Active and Suspected Problems (Last Updated 09/01/18 @ 19:15 by Shaquille Louie DO) Cranial third nerve paralysis, right (Acute) Hypertensive emergency (Acute) Diplopia (Acute) Dizziness (Acute) Subjective: Eye appears worse today. He is unable to adduct his right eye at all. No headache, fevers, chills, numbness/tingling, focal weakness. He is agreeable to LP. - Physical Exam General: Alert, Oriented x3, Cooperative HEENT: Atraumatic, EOMI, Normocephalic, - - no adduction right eye, abducting drift in right eye when tested Neck: Supple, No JVD, Negative Carotid Bruits Lungs: Clear to auscultation, Normal air movement Cardiovascular: Regular rate, No murmurs Abdomen: Bowel Sounds Present, Soft, Non Tender Extremities: No edema, Capillary Refill Less than 3 Seconds Skin: No rashes, No breakdown Musculoskeletal: No Tenderness to Palpation of Joints or Extremities Neurological: Cranial nerves II-XII grossly intact Psych/Mental Status: Normal Affect, Appropriate, Alert and oriented to time, place, person, mood and affect Vital Signs Temp Pulse Resp BP Pulse Ox 98.0 F 70 18 168/107 H 98 09/03/18 10:11 09/03/18 13:29 09/03/18 10:11 09/03/18 10:11 09/03/18 10:11 Oxygen Delivery Method Room Air Weight: 264 lb 5.348 oz Body Mass Index (BMI) 40.1 Intake and Output for Last 24 Hours 09/01/18 09/02/18 09/03/18 23:59 23:59 23:59 Intake Total 120 / 120 580 / 580 480 / 480 Balance 120 / 120 580 / 580 480 / 480 Laboratory Tests Past 24 Hrs 09/03/18 06:13 Sodium 138 Potassium 3.8 Chloride 102 Carbon Dioxide 27.0 Anion Gap 9 BUN 21 H Creatinine 0.93 Estim Creat Clear Calc 88.87 Est GFR (MDRD) Af Amer 109 Est GFR (MDRD) Non-Af 90 BUN/Creatinine Ratio 22.5 H Glucose 105 Calcium 9.3 Medical Necessity - Tobacco Use Smoking Status: Never smoker Tobacco Use: Non-smoker Assessment/Plan All Active Problems (Last Updated 09/01/18 @ 19:15 by Shaquille Louie DO) Cranial third nerve paralysis, right (Acute) Hypertensive emergency (Acute) Diplopia (Acute) Dizziness (Acute) 1. 3rd cranial nerve palsy - stroke ruled out. MRI brain with and w/o contrast negative, MRA head and neck neg. palsy worse today. LP per neuro recommendation. EVA level, lyme antibody, acetylcholine antibody levels pending. TSH normal. Neuro to order CSF studies. 2. HTN emergency - Improving, increased HCTZ today. 3. Prediabetes with morbid obesity - A1C 6.0. Patient Relations Manager eval ordered. Needs diet/lifestyle modification and repeat a1c in 3-4 months. DVT ppx: lovenox DC planning: Pending LP. This patient was seen by Nael Lopez PA-C under the supervision of Dr. George. <Francisca George - Last Filed: 09/03/18 17:11> - Physical Exam Vital Signs Temp Pulse Resp BP Pulse Ox 97.4 F L 71 18 156/104 H 92 09/03/18 15:45 09/03/18 15:45 09/03/18 15:45 09/03/18 15:45 09/03/18 15:45 Oxygen Delivery Method Room Air Weight: 119.9 kg Body Mass Index (BMI) 40.1 Intake and Output for Last 24 Hours 09/01/18 09/02/18 09/03/18 23:59 23:59 23:59 Intake Total 120 / 120 580 / 580 480 / 480 Balance 120 / 120 580 / 580 480 / 480 Laboratory Tests Past 24 Hrs 09/03/18 09/03/18 09/03/18 06:13 15:30 15:30 Sodium 138 Potassium 3.8 Chloride 102 Carbon Dioxide 27.0 Anion Gap 9 BUN 21 H Creatinine 0.93 Estim Creat Clear Calc 88.87 Est GFR (MDRD) Af Amer 109 Est GFR (MDRD) Non-Af 90 BUN/Creatinine Ratio 22.5 H Glucose 105 Calcium 9.3 Fld Polynuclear WBCs # Fld Polynuclear WBCs % Fluid Mononuclear WBCs Fld Mononuclear WBCs % CSF Appearance CSF Color CSF WBC CSF RBC CSF Cell Count Tube # CSF Total Cell Counted CSF Comment CSF Glucose 59 CSF Total Protein 53.0 H CSF Cryptococcus Ag Pending West Nile Virus IgG Ab Pending West Nile Virus IgM Ab Pending Miscellaneous Cytology Miscellaneous Test 09/03/18 09/03/18 09/03/18 15:30 15:30 15:30 Sodium Potassium Chloride Carbon Dioxide Anion Gap BUN Creatinine Estim Creat Clear Calc Est GFR (MDRD) Af Amer Est GFR (MDRD) Non-Af BUN/Creatinine Ratio Glucose Calcium Fld Polynuclear WBCs # Fld Polynuclear WBCs % Fluid Mononuclear WBCs Fld Mononuclear WBCs % CSF Appearance CSF Color CSF WBC CSF RBC CSF Cell Count Tube # CSF Total Cell Counted CSF Comment CSF Glucose CSF Total Protein CSF Cryptococcus Ag West Nile Virus IgG Ab West Nile Virus IgM Ab Miscellaneous Cytology Pending Miscellaneous Test Pending Pending 09/03/18 15:30 Sodium Potassium Chloride Carbon Dioxide Anion Gap BUN Creatinine Estim Creat Clear Calc Est GFR (MDRD) Af Amer Est GFR (MDRD) Non-Af BUN/Creatinine Ratio Glucose Calcium Fld Polynuclear WBCs # 0.005 Fld Polynuclear WBCs % 71.4 Fluid Mononuclear WBCs 0.002 Fld Mononuclear WBCs % 28.6 CSF Appearance Pending CSF Color Pending CSF WBC 0.007 H CSF RBC Pending CSF Cell Count Tube # Pending CSF Total Cell Counted 0.007 CSF Comment Pending CSF Glucose CSF Total Protein CSF Cryptococcus Ag West Nile Virus IgG Ab West Nile Virus IgM Ab Miscellaneous Cytology Miscellaneous Test Assessment/Plan This patient was seen in conjunction with TORITO Downing. I have independently interviewed and examined the patient and reviewed pertinent historical, laboratory, and other data. Please refer to TORITO Downing note for his patient's presentation, findings, and recommendations. I have reviewed and his note and concur with his documentation He was seen and examined. Complains of tingling and numbness in his right hand. Continues to have diplopia and dizziness. Denies any headache or radicular symptoms. MRI of the head is negative. Head CT and MRA of the neck is unremarkable Blood pressure is better controlled today. 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 Cranial nerve palsy - 05/11, s/p LP, neurology consulted 2. Hypertension, better controlled today 3. Morbid obesity Plan: Routine labs status post lumbar puncture, Lyme,EVA, HSV/EBV/CMV PCR Continue to monitor PT/OT to evaluate and treat Code Visit Inpatient E&M: 87294 Subs Hosp L3
--- NOTE | 2018-09-03 15:21 | PRO.PCM_ITS ---
Problem List (1) Cranial third nerve paralysis, right Status: Acute (2) Hypertensive emergency Status: Acute (3) Diplopia Status: Acute (4) Dizziness Status: Acute Procedure Report Date of Procedure: 09/03/18 Procedure note Lumbar puncture Indication: Right 3rd cranial nerve palsy. LP recommended by neurologist Procedure note In sitting upright procedure, lumbar area was sterilized and draped in aseptic manner. Strict aseptic manner was followed. L4-L5 interspinous region was palpated and marked. The area was adequately anesthetized locally with 1% lido shruti. LP needle was passed gently until resistance was felt and went off. Clear, colorless CSF fluid came. Opening pressure was measured, 36 cm of H2O. Fluid was collected in 4 tubes for CSF fluid analysis. The patient tolerated the procedure well. Had transient right lower leg shooting pain from back to knee but it resolves in few seconds. There is no hematoma or active bleeding. And bandaid was put. Patient was instructed to lay down and don't lift head for 6 hours. Tylenol 650 mg 1 dose. Code Visit Procedures: Other Procedure - See Report - Bedside Lumbr puncture
[2018-09-03] MEDS: 0.9% Normal Saline 1,000 ML 150 ML IV ×2 (15:34→21:09)
[2018-09-03] MEDS: Acetaminophen 325 MG Tablet 650 MG PO ×2 (15:36→22:02)
[2018-09-03 16:04] LABS: Cytology, Body Fluid / CSF SEE PATHOLOGY REPORT
[2018-09-03 16:25] LABS: Glucose Spinal Fluid 59 mg/dL (40-75)
[2018-09-03 16:52] LABS: Body Fluid Mononuclear WBC # 0.002 10^3/uL; Body Fluid Mononuclear WBC % 28.6 %; Body Fluid Polynuclear WBC # 0.005 10^3/uL; Body Fluid Polynuclear WBC % 71.4 %; Total Cell Count CSF 0.007 10^3/uL; White Count, CSF 0.007 10^3/uL (0.000-0.005)
[2018-09-03 17:18] LABS: Appearance CSF (character) CLEAR (Clear); Auto B Fluid Analyzer BKGD Ct COUNTS W/IN LIMITS (W/IN LIMITS); Body Fluid QC Type(s) BF1Q; CSF Color COLORLESS (Colorless); RBC Count, Spinal Fluid 6 /mm-3 (None seen); Tested Tube # 4
[2018-09-03] MEDS: Atorvastatin Calcium 80 MG Tablet PO (21:09)
[2018-09-04] VITALS (14 sets, daily range): BP systolic 141–184; BP diastolic 81–100; PULSE 62–108; RESP 16–18; TEMP 36.4–36.9; O2SAT 94–98
[2018-09-04] MEDS: hydrALAZINE 20 MG/ML Vial 10 MG IV ×2 (01:33→20:54)
[2018-09-04] MEDS: 0.9% NaCl Peripheral Flush Adult/Peds IV ×2 (01:33→20:54)
[2018-09-04] MEDS: Acetaminophen 325 MG Tablet 650 MG PO (05:39)
[2018-09-04] MEDS: hydroCHLOROthiazide 25 MG Tablet PO (09:08)
[2018-09-04] MEDS: Lisinopril 20 MG Tablet PO (09:08)
--- NOTE | 2018-09-04 11:31 | PCM.PROGNOTE ---
<Nael Lopez - Last Filed: 09/04/18 15:01> Patient Problems: Active and Suspected Problems (Last Updated 09/01/18 @ 19:15 by Shaquille Louie DO) Cranial third nerve paralysis, right (Acute) Hypertensive emergency (Acute) Diplopia (Acute) Dizziness (Acute) Subjective: Still blurry vision in right eye, although he feels this is improving. No HICKMAN, dizziness/LH. No focal weakness, numbess/tingling. - Physical Exam General: Alert, Oriented x3, Cooperative HEENT: Atraumatic, Normocephalic, - - still no right eye adduction past midline. Neck: Supple, No JVD, Negative Carotid Bruits Lungs: Clear to auscultation, Normal air movement Cardiovascular: Regular rate, No murmurs Abdomen: Bowel Sounds Present, Soft, Non Tender Extremities: No edema, Capillary Refill Less than 3 Seconds Skin: No rashes, No breakdown Musculoskeletal: No Tenderness to Palpation of Joints or Extremities Neurological: Cranial nerves II-XII grossly intact Psych/Mental Status: Normal Affect, Appropriate Vital Signs Temp Pulse Resp BP Pulse Ox 97.5 F L 72 18 169/87 H 97 09/04/18 09:06 09/04/18 09:06 09/04/18 09:06 09/04/18 09:06 09/04/18 09:06 Oxygen Delivery Method Room Air Weight: 264 lb 5.348 oz Body Mass Index (BMI) 40.1 Intake and Output for Last 24 Hours 09/02/18 09/03/18 09/04/18 23:59 23:59 23:59 Intake Total 580 / 580 960 / 2487 1771 / 1771 Output Total 350 / 950 1200 / 1200 Balance 580 / 580 610 / 1537 571 / 571 Microbiology Past 72 Hours 09/03/18 15:30 Gram Stain - Final Csf, Spinal Fluid Laboratory Tests Past 24 Hrs 09/03/18 09/03/18 09/03/18 15:30 15:30 15:30 Fld Polynuclear WBCs # Fld Polynuclear WBCs % Fluid Mononuclear WBCs Fld Mononuclear WBCs % CSF Appearance CSF Color CSF WBC CSF RBC CSF Cell Count Tube # CSF Total Cell Counted CSF Comment CSF Glucose 59 CSF Total Protein 53.0 H CSF Cryptococcus Ag Pending CSF West Nile IgG Ab Pending CSF West Nile IgM Ab Pending West Nile Virus IgG Ab Cancelled West Nile Virus IgM Ab Cancelled Miscellaneous Cytology Miscellaneous Test Pending 09/03/18 09/03/18 09/03/18 15:30 15:30 15:30 Fld Polynuclear WBCs # 0.005 Fld Polynuclear WBCs % 71.4 Fluid Mononuclear WBCs 0.002 Fld Mononuclear WBCs % 28.6 CSF Appearance CLEAR CSF Color COLORLESS CSF WBC 0.007 H CSF RBC 6 H CSF Cell Count Tube # 4 CSF Total Cell Counted 0.007 CSF Comment May follow CSF Glucose CSF Total Protein CSF Cryptococcus Ag CSF West Nile IgG Ab CSF West Nile IgM Ab West Nile Virus IgG Ab West Nile Virus IgM Ab Miscellaneous Cytology Pending Miscellaneous Test Pending Medical Necessity - Tobacco Use Smoking Status: Never smoker Tobacco Use: Non-smoker Assessment/Plan All Active Problems (Last Updated 09/01/18 @ 19:15 by Shaquille Louie DO) Cranial third nerve paralysis, right (Acute) Hypertensive emergency (Acute) Diplopia (Acute) Dizziness (Acute) 1. 3rd cranial nerve palsy - stroke ruled out. MRI brain with and w/o contrast negative, MRA head and neck neg. palsy worse today. LP per neuro recommendation. EVA level, lyme antibody, acetylcholine antibody levels pending. TSH normal. CSF studies showing inc. WBC/RBC/Protein. Gluc normal. Opening pressure was at least 39 cmH2O, gram stain no organisms. Possibly viral etiology. 2. HTN emergency - Improving, increased HCTZ today. 3. Prediabetes with morbid obesity - A1C 6.0. Sustainable Design Consultant eval ordered. Needs diet/lifestyle modification and repeat a1c in 3-4 months. DVT ppx: lovenox DC planning: Pending final LP studies/neuro rec. This patient was seen by Nael Lopez PA-C under the supervision of Dr. George. <Francisca George - Last Filed: 09/04/18 16:03> - Physical Exam Vital Signs Temp Pulse Resp BP Pulse Ox 97.5 F L 90 16 168/81 H 94 09/04/18 15:05 09/04/18 15:09 09/04/18 15:05 09/04/18 15:05 09/04/18 15:05 Oxygen Delivery Method Room Air Weight: 119.9 kg Body Mass Index (BMI) 40.1 Intake and Output for Last 24 Hours 09/02/18 09/03/18 09/04/18 23:59 23:59 23:59 Intake Total 580 / 580 960 / 2487 2131 / 2131 Output Total 350 / 950 1350 / 1350 Balance 580 / 580 610 / 1537 781 / 781 Microbiology Past 72 Hours 09/03/18 15:30 Gram Stain - Final Csf, Spinal Fluid CSF Culture - Preliminary No growth in 24 hours. Final to follow. Laboratory Tests Past 24 Hrs 09/02/18 09/03/18 09/03/18 13:15 15:30 15:30 Angiotensin Convert Enz Pending Fld Polynuclear WBCs # Fld Polynuclear WBCs % Fluid Mononuclear WBCs Fld Mononuclear WBCs % CSF Appearance CSF Color CSF WBC CSF RBC CSF Cell Count Tube # CSF Total Cell Counted CSF Comment CSF Glucose 59 CSF Total Protein 53.0 H CSF Cryptococcus Ag Pending CSF West Nile IgG Ab Pending CSF [place] IgM Ab Pending Acetylcholine Recept Ab Pending Acetylchol Rcpt Block Ab Pending Acetylchol Rcpt Modu Ab Pending Lyme Total Antibody Pending West Nile Virus IgG Ab Cancelled West Nile Virus IgM Ab Cancelled HSV I DNA PCR Pending HSV II DNA PCR Pending Miscellaneous Cytology Miscellaneous Test 09/03/18 09/03/18 09/03/18 15:30 15:30 15:30 Angiotensin Convert Enz Fld Polynuclear WBCs # Fld Polynuclear WBCs % Fluid Mononuclear WBCs Fld Mononuclear WBCs % CSF Appearance CSF Color CSF WBC CSF RBC CSF Cell Count Tube # CSF Total Cell Counted CSF Comment CSF Glucose CSF Total Protein CSF Cryptococcus Ag CSF West Nile IgG Ab CSF West Nile IgM Ab Acetylcholine Recept Ab Acetylchol Rcpt Block Ab Acetylchol Rcpt Modu Ab Lyme Total Antibody West Nile Virus IgG Ab West Nile Virus IgM Ab HSV I DNA PCR HSV II DNA PCR Miscellaneous Cytology Pending Miscellaneous Test Pending Pending 09/03/18 15:30 Angiotensin Convert Enz Fld Polynuclear WBCs # 0.005 Fld Polynuclear WBCs % 71.4 Fluid Mononuclear WBCs 0.002 Fld Mononuclear WBCs % 28.6 CSF Appearance CLEAR CSF Color COLORLESS CSF WBC 0.007 H CSF RBC 6 H CSF Cell Count Tube # 4 CSF Total Cell Counted 0.007 CSF Comment May follow CSF Glucose CSF Total Protein CSF Cryptococcus Ag CSF West Nile IgG Ab CSF West Nile IgM Ab Acetylcholine Recept Ab Acetylchol Rcpt Block Ab Acetylchol Rcpt Modu Ab Lyme Total Antibody West Nile Virus IgG Ab West Nile Virus IgM Ab HSV I DNA PCR HSV II DNA PCR Miscellaneous Cytology Miscellaneous Test Assessment/Plan This patient was seen in conjunction with TORITO Downing. I have independently interviewed and examined the patient and reviewed pertinent historical, laboratory, and other data. Please refer to TORITO Downing note for his patient's presentation, findings, and recommendations. I have reviewed and his note and concur with his documentation He was seen and examined. Still tingling and numbness in his right hand. Continues to have diplopia and dizziness. Denies any headache or radicular symptoms. No fever, or chills. 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 Cranial nerve palsy - 3rd/6th, s/p LP, MRA of the head and neck as well as MRI is negative. EVA level, lyme antibody, acetylcholine antibody levels pending CSF had total cell count 4, RBC 6, WBC 0.007, Total protein 53 2. Hypertension, better controlled today 3. Morbid obesity Plan: Continue to follow labs CT venogram Continue with amlodipine 5 mg p.o. daily Code Visit Inpatient E&M: 20948 Subs Hosp L2
[2018-09-04] MEDS: amLODIPine 5 MG Tablet PO (16:31)
[2018-09-04] MEDS: Atorvastatin Calcium 80 MG Tablet PO (20:54)
[2018-09-05] VITALS (18 sets, daily range): BP systolic 107–173; BP diastolic 64–97; PULSE 66–98; RESP 14–18; TEMP 36.4–37; O2SAT 93–99
[2018-09-05] MEDS: hydrALAZINE 20 MG/ML Vial 10 MG IV (00:53)
[2018-09-05] MEDS: MELATONIN 3 MG TABLET PO ×2 (00:58→22:11)
--- NOTE | 2018-09-05 08:03 | MRI_ITS ---
STUDY: EXAMINATION - MRV BRAIN WITHOUT CONTRAST REASON FOR EXAM: Male, 53 years old. Cerebral venous sinus thrombosis with double vision and dizziness, tingling in the right hand TECHNIQUE: 3D [id number] (TOF) imaging was performed in a 1.5 aashish MRI scanner. COMPARISON: None. FINDINGS: Normal flow within the superior sagittal sinus. Normal flow within the superficial cortical veins. Normal flow within the paired internal cerebral veins, vein of Robert and straight sinus. Normal flow within the bilateral transverse and sigmoid sinuses. Normal flow within the bilateral jugular bulbs. MRI/MRV Head Without Contrast IMPRESSION: Normal unenhanced MRV of the brain. Electronically Signed: Juwan Paula MD at 9:40 EDT Tel , Service support ,
[2018-09-05] MEDS: hydroCHLOROthiazide 25 MG Tablet PO (08:41)
[2018-09-05] MEDS: Lisinopril 20 MG Tablet PO (08:41)
[2018-09-05] MEDS: amLODIPine 10 MG Tablet PO (09:31)
--- NOTE | 2018-09-05 13:06 | PCM.PN.NEU ---
Patient Problems: Active and Suspected Problems (Last Updated 09/01/18 @ 19:15 by Shaquille Louie DO) Cranial third nerve paralysis, right (Acute) Hypertensive emergency (Acute) Diplopia (Acute) Dizziness (Acute) Subjective: No issues overnight. Care discussed with the treating hospitalist team. Continues to have diplopia and dizziness along with ? mild left eye ptosis and left 6th nerve palsy. MRI brain with and without contrast negative, CTA head/neck reported no aneurysm or occlusion, MRV negative, LP?CSF WBCs 7, protein 53, glucose 59, RBC 6. No meningeal signs or fever. ID consulted. No papilledema per ophthalmology evaluation. - Physical Exam General: Alert HEENT: Normocephalic Neck: Supple Lungs: Normal air movement Cardiovascular: Normal S1, Normal S2 Abdomen: Bowel Sounds Present Extremities: No cyanosis Neurological: - - Conscious, alert, CN?? Mild ptosis left eye, left 6th nerve palsy, pupils PERRLA, power 5 x 5 both upper and lower extremities, no sensory loss noted, no cerebellar signs,Reflexes + B/L B/S/T/K/A, plantars bilateral flexor, gait deferred, no NR Psych/Mental Status: Normal Affect Vital Signs Temp Pulse Resp BP Pulse Ox 97.6 F L 69 16 144/87 H 99 09/05/18 08:36 09/05/18 10:59 09/05/18 08:36 09/05/18 08:36 09/05/18 08:36 Oxygen Delivery Method Room Air Weight: 119.9 kg Body Mass Index (BMI) 40.1 Intake and Output for Last 24 Hours 09/03/18 09/04/18 09/05/18 23:59 23:59 23:59 Intake Total 960 / 2487 2731 / 2731 310 / 310 Output Total 350 / 950 1350 / 1350 Balance 610 / 1537 1381 / 1381 310 / 310 Microbiology Past 72 Hours 09/03/18 15:30 Gram Stain - Final Csf, Spinal Fluid CSF Culture - Preliminary No growth in 24 hours. Final to follow. Medical Necessity - Tobacco Use Smoking Status: Never smoker Tobacco Use: Non-smoker Assessment/Plan All Active Problems (Last Updated 09/01/18 @ 19:15 by Shaquille Louie DO) Cranial third nerve paralysis, right (Acute) Hypertensive emergency (Acute) Diplopia (Acute) Dizziness (Acute) The patient is a 53 year old M with PMH HTN (not on medications), morbid obesity, psoriasis admitted with dizziness and diplopia. Per patient he started noticing some dizziness where he would feel funny and lightheaded followed by diplopia 2 days ago starting 08/31/2018, later his symptoms improved but then again he felt dizziness and diplopia yesterday 09/01/2018 following which he was admitted to the hospital. He denies any headache, fever, neck stiffness, focal motor weakness, facial weakness, sensory loss, speech disturbances or vision loss. Per ED and hospitalist documentation on admission patient was noticed to have right eye deviated outside with possible 3rd nerve palsy. At present patient does not have any cranial nerve palsy on examination and per patient his diplopia is much better. He was found to have uncontrolled high blood pressure with SBP > 210 mmHg since admission. Per brother and mother he is noncompliant with his blood pressure medications, per mother he does snore a lot and also stops breathing at night while sleeping. Per patient he mostly lives with his mother, denies any frequent falls and balance issues, does not use a cane or walker to ambulate, and does drive. CTA head done on admission did not show any aneurysms or hemodynamically significant stenosis or occlusion. MRI brain did not show any acute stroke. HbA1c 6, LDL 118. Impression Diplopia, dizziness-? Mild left eye ptosis, left 6th nerve palsy Uncontrolled hypertension, hypertensive urgency Plan ?MRI brain and CTA head reviewed?no acute stroke or aneurysm/stenosis or occlusion, MRV negative ?Better blood pressure control with goal blood pressure less than 130/80 mmHg. Will defer to the primary team. Patient was counseled to be compliant with blood pressure medications. He understands the same ?EEG ?TTE-EF 65%, normal LA size, no PFO ?Trial of Mestinon 60 mg p.o. q. 8 hourly. ?Trial of IVIG 0.4 g/kg per dose for 3 to 5 days. Side effects discussed in detail with patient -paraneoplastic ab and west Nile AB-p -LP- CSF cell count-WBC 7, RBCs 6, protein-53, glucose-59. Lyme, EVA, HSV/EBV/CMV PCR-p ?Acetylcholine receptor binding blocking and modulating antibodies, Lyme's antibody and EVA level-p. ?Polysomnography testing as outpatient to rule out sleep apnea ?ID consult ?GI/DVT prophylaxis ?PT/OT ?Fall precautions ?Further medical management per hospitalist team ?Follow-up with neurology as outpatient in 4 weeks ?Please call with questions if any ?Thank you for allowing us to participate in patient's care and management
--- NOTE | 2018-09-05 13:48 | EEG_ITS ---
- Electroencephalogram Date of service 09/04/2018 History EEG is being done in this 53 yr M to rule out seizures EEG Description: This is an 18 channel EEG with 10-20 lead placement system. Bipolar montages, and Referential montages were reviewed. Photic stimulation and Hyperventilation were performed. The posterior dominant rhythm is 9 HZ synchronous, symmetric, reacting to eye opening and closing. Photo stimulation elicited normal driving response but no abnormal photoparoxysmal response, Hyperventilation did not elicit any abnormal photoparoxysmal response. Sleep was identified. There is no abnormal background slowing noted. EKG artefact noted during the record. Multiple episodes of apnea noted by the pharmacy intake technician. There was no epileptiform discharges or electrographic seizures noted during this recording. EEG Interpretation This is an abnormal EEG due to the presence of multiple episodes of apnea noted during the record. Patient should be evaluated by treating physician for sleep apnea. Clinical correlation is advised. There is no epileptiform discharges or electrographic seizures noted during the record.
--- NOTE | 2018-09-05 14:22 | PN_ITS ---
Patient Problems: Active and Suspected Problems (Last Updated 09/01/18 @ 19:15 by Shaquille Louie DO) Cranial third nerve paralysis, right (Acute) Hypertensive emergency (Acute) Diplopia (Acute) Dizziness (Acute) Subjective: Ongoing diplopia with patch off, strabismus. No HICKMAN, dizziness, nausea/vomiting, focal weakness. Vision is still decreased right eye. - Physical Exam General: Alert, Oriented x3, Cooperative HEENT: Atraumatic, Normocephalic, - - strabismus right eye, inability to adduct Neck: Supple, No JVD, Negative Carotid Bruits Lungs: Clear to auscultation, Normal air movement Cardiovascular: Regular rate, No murmurs Abdomen: Bowel Sounds Present, Soft, Non Tender Extremities: No edema, Capillary Refill Less than 3 Seconds Skin: No rashes, No breakdown Musculoskeletal: No Tenderness to Palpation of Joints or Extremities Neurological: - - right eye unchanged from above Psych/Mental Status: Normal Affect, Appropriate, Alert and oriented to time, place, person, mood and affect Vital Signs Temp Pulse Resp BP Pulse Ox 97.6 F L 76 18 119/67 95 09/05/18 14:00 09/05/18 14:00 09/05/18 14:00 09/05/18 14:00 09/05/18 14:00 Oxygen Delivery Method Room Air Weight: 264 lb 5.348 oz Body Mass Index (BMI) 40.1 Intake and Output for Last 24 Hours 09/03/18 09/04/18 09/05/18 23:59 23:59 23:59 Intake Total 960 / 2487 2731 / 2731 310 / 310 Output Total 350 / 950 1350 / 1350 Balance 610 / 1537 1381 / 1381 310 / 310 Microbiology Past 72 Hours 09/03/18 15:30 Gram Stain - Final Csf, Spinal Fluid CSF Culture - Preliminary No growth in 24 hours. Final to follow. Medical Necessity - Tobacco Use Smoking Status: Never smoker Tobacco Use: Non-smoker Assessment/Plan All Active Problems (Last Updated 09/01/18 @ 19:15 by Shaquille Louie DO) Cranial third nerve paralysis, right (Acute) Hypertensive emergency (Acute) Diplopia (Acute) Dizziness (Acute) 1. 3rd / 6th cranial nerve palsy - stroke ruled out. MRI brain with and w/o contrast negative, MRA head and neck neg. LP done. EVA level, lyme antibody, acetylcholine antibody levels pending. TSH normal. CSF studies showing inc. WBC/RBC/Protein. Gluc normal. Opening pressure was at least 39 cmH2O, gram stain no organisms. Possibly viral etiology. Possibly MG. Neuro recommends start mestinon daily and IVIG x 3 doses. No papilledema per optho. -MRV this AM negative for cerebral venous sinus thrombus. HSV LP PCR should be back tomorrow. Lyme antibody is negative. - EEG shows apnea. No Seizures. 2. HTN emergency - HCTZ, lisinopril, norvasc. 3. Prediabetes with morbid obesity - A1C 6.0. Multi Craft Maintenance Technician eval ordered. Needs diet/lifestyle modification and repeat a1c in 3-4 months. 4. Probable sleep apnea - per EEG, needs PSG. DVT ppx: lovenox DC planning: trial IVIG x 3 days This patient was seen by Nael Lopez PA-C under the supervision of Dr. Del Angel
[2018-09-05 14:50] LABS: Pathologist Review Reviewed
[2018-09-05] MEDS: Immune Globulin 20 gm Premixed Solution IV (15:47)
[2018-09-05] MEDS: Pyridostigmine Bromide 60 MG Tablet PO ×2 (17:36→22:11)
[2018-09-05] MEDS: Immune Globulin 10 gm Premixed Solution IV (18:07)
[2018-09-05] MEDS: Atorvastatin Calcium 80 MG Tablet PO (22:11)
[2018-09-06] VITALS (16 sets, daily range): BP systolic 112–158; BP diastolic 61–86; PULSE 57–80; RESP 15–18; TEMP 36.4–37.1; O2SAT 93–100
[2018-09-06] MEDS: Pyridostigmine Bromide 60 MG Tablet PO ×3 (05:26→21:20)
[2018-09-06] MEDS: hydroCHLOROthiazide 25 MG Tablet PO (10:01)
[2018-09-06] MEDS: amLODIPine 5 MG Tablet 10 MG PO (10:01)
[2018-09-06] MEDS: Lisinopril 20 MG Tablet PO (10:01)
--- NOTE | 2018-09-06 10:45 | PCM.HP.ID ---
Problem List (1) Diplopia Status: Acute Reason for Consult: abnormal csf Consulted by: Dr. Del Angel History of Present Illness: The patient is a 53 year old M presented 09/01 with sudden onset dizziness and double vision. No headache, no neck stiffness, no fever, no recent travel/bug bites/sick contacts. Came to ED, found to have CN palsy, LP done, seen by neuro. Feeling a little better since starting IVIG yesterday. No abx given. No fever here. Full ROS Performed and neg except as noted above. - Medical History Allergies/Adverse Reactions: Allergies No Known Allergies Allergy (Verified 09/01/18 15:42) Home Medications: Ambulatory Orders Medication Instructions Recorded NK 09/01/18 - Social History Tobacco Use: non-smoker Vital Signs Temp Pulse Resp BP Pulse Ox 97.6 F L 68 18 121/82 H 97 09/06/18 10:00 09/06/18 10:00 09/06/18 10:00 09/06/18 10:00 09/06/18 10:00 Oxygen Delivery Method Room Air Weight: 119.9 kg Body Mass Index (BMI) 40.1 Microbiology Past 72 Hours 09/03/18 15:30 Gram Stain - Final Csf, Spinal Fluid CSF Culture - Preliminary No growth in 24 hours. Final to follow. Laboratory Tests Past 24 Hrs 09/03/18 09/05/18 15:30 14:10 CSF Comment Reviewed West Nile Virus IgG Ab Pending West Nile Virus IgM Ab Pending - Other Studies Radiology: [] reviewed Other Studies: [] Route of nutrition/ use of supplements: [] Nutritional Intake: [] IV Site: [] Chawla Catheter: [] - Physical Exam General: Alert, Oriented x3, Cooperative, No apparent distress HEENT: Atraumatic Neck: Supple, No Nodes Lungs: Clear to auscultation, Normal air movement Cardiovascular: Regular rate, Regular Rhythm Abdomen: Soft, Non Tender, Non-Distended Extremities: No edema Skin: No rashes IV Site: Peripheral, without redness Musculoskeletal: No Tenderness to Palpation of Joints or Extremities Neurological: - - diplopia - Assessment/Plan Antibiotics: [] Assessment/Plan: [] Active and Suspected Problems (Last Updated 09/01/18 @ 19:15 by Shaquille Louie DO) Cranial third nerve paralysis, right (Acute) Hypertensive emergency (Acute) Diplopia (Acute) Dizziness (Acute) No evidence of meningitis/encephalitis. Agree with monitoring off of abx. HSV pcr pending. Thank you, will follow as needed, d/w Dr. Mckeon
--- NOTE | 2018-09-06 11:38 | PCM.PROGNOTE ---
Patient Problems: Active and Suspected Problems (Last Updated 09/01/18 @ 19:15 by Shaquille Louie DO) Cranial third nerve paralysis, right (Acute) Hypertensive emergency (Acute) Diplopia (Acute) Dizziness (Acute) Subjective: Pt reports no headache or dizziness, no fever/chills/cough/neck pain. He continues to use the patch. He feels his eye ROM and acuity is actually improving already. He seems in good spirits. No other acute issues. Received one dose IVIG and 3 doses mestinon so far. - Physical Exam General: Alert, Oriented x3, Cooperative HEENT: Atraumatic, EOMI, Normocephalic, - - unchanged Neck: Supple, No JVD, Negative Carotid Bruits Lungs: Clear to auscultation, Normal air movement Cardiovascular: Regular rate, No murmurs Abdomen: Bowel Sounds Present, Soft, Non Tender Extremities: No edema, Capillary Refill Less than 3 Seconds Skin: No rashes, No breakdown Musculoskeletal: No Tenderness to Palpation of Joints or Extremities Neurological: Cranial nerves II-XII grossly intact Psych/Mental Status: Normal Affect, Appropriate, Alert and oriented to time, place, person, mood and affect Vital Signs Temp Pulse Resp BP Pulse Ox 97.6 F L 68 18 121/82 H 97 09/06/18 10:00 09/06/18 10:00 09/06/18 10:00 09/06/18 10:09/06/18 10:00 Oxygen Delivery Method Room Air Weight: 264 lb 5.348 oz Body Mass Index (BMI) 40.1 Intake and Output for Last 24 Hours 09/04/18 09/05/18 09/06/18 23:59 23:59 23:59 Intake Total 2731 / 2731 836 / 836 75 / 75 Output Total 1350 / 1350 200 / 200 0 / 0 Balance 1381 / 1381 636 / 636 75 / 75 Microbiology Past 72 Hours 09/03/18 15:30 Gram Stain - Final Csf, Spinal Fluid CSF Culture - Preliminary No growth in 24 hours. Final to follow. Laboratory Tests Past 24 Hrs 09/03/18 09/05/18 15:30 14:10 CSF Comment Reviewed West Nile Virus IgG Ab Pending West Nile Virus IgM Ab Pending Medical Necessity - Tobacco Use Smoking Status: Never smoker Tobacco Use: Non-smoker Assessment/Plan All Active Problems (Last Updated 09/01/18 @ 19:15 by Shaquille Louie DO) Cranial third nerve paralysis, right (Acute) Hypertensive emergency (Acute) Diplopia (Acute) Dizziness (Acute) 1. 3rd / 6th cranial nerve palsy - stroke ruled out. MRI brain with and w/o contrast negative, MRA head and neck neg. LP done. EVA level, lyme antibody, acetylcholine antibody levels pending. TSH normal. CSF studies showing inc. WBC/RBC/Protein. Gluc normal. Opening pressure was at least 39 cmH2O, gram stain no organisms. Possibly viral etiology. -Possibly MG, improving after starting mestinon and IVIG already, per subjective. - EEG shows apnea. No Seizures. -HSV pending, per lab should be back today. -Per ID, antivirals not indicated and likely no meningitis. 2. HTN emergency - HCTZ, lisinopril, norvasc. 3. Prediabetes with morbid obesity - A1C 6.0. Patient Resource Coordinator eval ordered. Needs diet/lifestyle modification and repeat a1c in 3-4 months. 4. Probable sleep apnea - per EEG, needs PSG. DVT ppx: lovenox DC planning: trial IVIG x 3 days This patient was seen by Nael Lopez PA-C under the supervision of Dr. Del Angel
--- NOTE | 2018-09-06 13:46 | PCM.PN.NEU ---
Patient Problems: Active and Suspected Problems (Last Updated 09/01/18 @ 19:15 by Shaquille Louie DO) Cranial third nerve paralysis, right (Acute) Hypertensive emergency (Acute) Diplopia (Acute) Dizziness (Acute) Subjective: No issues overnight. Received IVIG and Mestinon. Patient tolerating medications well. Per patient he feels his dizziness has improved and also the diplopia has slightly improved per patient. - Physical Exam General: Alert HEENT: Normocephalic Neck: Supple Lungs: Normal air movement Cardiovascular: Normal S1, Normal S2 Abdomen: Bowel Sounds Present Extremities: No cyanosis Neurological: - - Conscious, alert, CN?? Mild ptosis left eye, left 6th nerve palsy, pupils PERRLA, power 5 x 5 both upper and lower extremities, no sensory loss noted, no cerebellar signs,Reflexes + B/L B/S/T/K/A, plantars bilateral flexor, gait deferred, no NR Psych/Mental Status: Normal Affect Vital Signs Temp Pulse Resp BP Pulse Ox 97.6 F L 68 18 121/82 H 97 09/06/18 10:00 09/06/18 10:00 09/06/18 10:00 09/06/18 10:00 09/06/18 10:00 Oxygen Delivery Method Room Air Weight: 119.9 kg Body Mass Index (BMI) 40.1 Intake and Output for Last 24 Hours 09/04/18 09/05/18 09/06/18 23:59 23:59 23:59 Intake Total 2731 / 2731 836 / 836 75 / 75 Output Total 1350 / 1350 200 / 200 0 / 0 Balance 1381 / 1381 636 / 636 75 / 75 Microbiology Past 72 Hours 09/03/18 15:30 Gram Stain - Final Csf, Spinal Fluid CSF Culture - Preliminary No growth in 24 hours. Final to follow. Laboratory Tests Past 24 Hrs 09/03/18 09/05/18 15:30 14:10 CSF Comment Reviewed West Nile Virus IgG Ab Pending West Nile Virus IgM Ab Pending Medical Necessity - Tobacco Use Smoking Status: Never smoker Tobacco Use: Non-smoker Assessment/Plan All Active Problems (Last Updated 09/01/18 @ 19:15 by Shaquille Louie DO) Cranial third nerve paralysis, right (Acute) Hypertensive emergency (Acute) Diplopia (Acute) Dizziness (Acute) The patient is a 53 year old M with PMH HTN (not on medications), morbid obesity, psoriasis admitted with dizziness and diplopia. Per patient he started noticing some dizziness where he would feel funny and lightheaded followed by diplopia 2 days ago starting 08/31/2018, later his symptoms improved but then again he felt dizziness and diplopia yesterday 09/01/2018 following which he was admitted to the hospital. He denies any headache, fever, neck stiffness, focal motor weakness, facial weakness, sensory loss, speech disturbances or vision loss. Per ED and hospitalist documentation on admission patient was noticed to have right eye deviated outside with possible 3rd nerve palsy. At present patient does not have any cranial nerve palsy on examination and per patient his diplopia is much better. He was found to have uncontrolled high blood pressure with SBP > 210 mmHg since admission. Per brother and mother he is noncompliant with his blood pressure medications, per mother he does snore a lot and also stops breathing at night while sleeping. Per patient he mostly lives with his mother, denies any frequent falls and balance issues, does not use a cane or walker to ambulate, and does drive. CTA head done on admission did not show any aneurysms or hemodynamically significant stenosis or occlusion. MRI brain did not show any acute stroke. HbA1c 6, LDL 118. Impression Diplopia, dizziness-? Mild left eye ptosis, left 6th nerve palsy Uncontrolled hypertension, hypertensive urgency Plan ?MRI brain and CTA head reviewed?no acute stroke or aneurysm/stenosis or occlusion, MRV negative ?Better blood pressure control with goal blood pressure less than 130/80 mmHg. Will defer to the primary team. Patient was counseled to be compliant with blood pressure medications. He understands the same ?EEG-no epileptiform discharges, or seizures. Multiple apnea episodes ?TTE-EF 65%, normal LA size, no PFO ?Trial of Mestinon 60 mg p.o. q. 8 hourly. ?Trial of IVIG 0.4 g/kg per dose for 3 to 5 days. Side effects discussed in detail with patient -paraneoplastic ab and west Nile AB-p -LP- CSF cell count-WBC 7, RBCs 6, protein-53, glucose-59. Lyme, EVA, HSV/EBV/CMV PCR-p ?Acetylcholine receptor binding blocking and modulating antibodies, Lyme's antibody and EVA level-p. ?Polysomnography testing as outpatient to rule out sleep apnea ?ID consult ?GI/DVT prophylaxis ?PT/OT ?Fall precautions ?Further medical management per hospitalist team ?Follow-up with neurology as outpatient in 4 weeks ?Please call with questions if any ?Thank you for allowing us to participate in patient's care and management
[2018-09-06] MEDS: Immune Globulin 20 gm Premixed Solution IV (17:03)
[2018-09-06] MEDS: Immune Globulin 10 gm Premixed Solution IV (19:12)
[2018-09-06] MEDS: Atorvastatin Calcium 80 MG Tablet PO (21:20)
[2018-09-07] VITALS (17 sets, daily range): BP systolic 119–162; BP diastolic 76–94; PULSE 63–90; RESP 15–19; TEMP 36.4–36.9; O2SAT 93–97
[2018-09-07] MEDS: Pyridostigmine Bromide 60 MG Tablet PO ×3 (05:58→22:09)
[2018-09-07] MEDS: amLODIPine 5 MG Tablet 10 MG PO (09:45)
[2018-09-07] MEDS: Lisinopril 20 MG Tablet PO (09:46)
[2018-09-07] MEDS: hydroCHLOROthiazide 25 MG Tablet PO (09:46)
--- NOTE | 2018-09-07 10:47 | PCM.PN.NEU ---
Patient Problems: Active and Suspected Problems (Last Updated 09/01/18 @ 19:15 by Shaquille Louie DO) Cranial third nerve paralysis, right (Acute) Hypertensive emergency (Acute) Diplopia (Acute) Dizziness (Acute) Subjective: No issues overnight. Denies any dizziness. Per patient diplopia is improving. Patient has been tolerating IVIG. Denies any headache. - Physical Exam General: Alert HEENT: Normocephalic Neck: Supple Lungs: Normal air movement Cardiovascular: Normal S1, Normal S2 Abdomen: Bowel Sounds Present Extremities: No cyanosis Neurological: - - Conscious, alert, CN?? Mild ptosis left eye, left 6th nerve palsy, pupils PERRLA, power 5 x 5 both upper and lower extremities, no sensory loss noted, no cerebellar signs,Reflexes + B/L B/S/T/K/A, plantars bilateral flexor, gait deferred, no NR Psych/Mental Status: Normal Affect Vital Signs Temp Pulse Resp BP Pulse Ox 97.9 F 68 17 119/80 95 09/07/18 09:41 09/07/18 09:41 09/07/18 09:41 09/07/18 09:41 09/07/18 09:41 Oxygen Delivery Method Room Air Weight: 119.9 kg Body Mass Index (BMI) 40.1 Intake and Output for Last 24 Hours 09/05/18 09/06/18 09/07/18 23:59 23:59 23:59 Intake Total 836 / 836 495 / 918 483 / 483 Output Total 200 / 200 150 / 400 650 / 650 Balance 636 / 636 345 / 518 -167 / -167 Microbiology Past 72 Hours 09/03/18 15:30 Gram Stain - Final Csf, Spinal Fluid CSF Culture - Final No growth in 72 hours. Medical Necessity - Tobacco Use Smoking Status: Never smoker Tobacco Use: Non-smoker Assessment/Plan All Active Problems (Last Updated 09/01/18 @ 19:15 by Shaquille Louie DO) Cranial third nerve paralysis, right (Acute) Hypertensive emergency (Acute) Diplopia (Acute) Dizziness (Acute) The patient is a 53 year old M with PMH HTN (not on medications), morbid obesity, psoriasis admitted with dizziness and diplopia. Per patient he started noticing some dizziness where he would feel funny and lightheaded followed by diplopia started 08/31/2018, later his symptoms improved but then again he felt dizziness and diplopia 09/01/2018 following which he was admitted to the hospital. He denies any headache, fever, neck stiffness, focal motor weakness, facial weakness, sensory loss, speech disturbances or vision loss. Per ED and hospitalist documentation on admission patient was noticed to have right eye deviated outside with possible 3rd nerve palsy. At present patient does not have any cranial nerve palsy on examination and per patient his diplopia is much better. He was found to have uncontrolled high blood pressure with SBP > 210 mmHg since admission. Per brother and mother he is noncompliant with his blood pressure medications, per mother he does snore a lot and also stops breathing at night while sleeping. Per patient he mostly lives with his mother, denies any frequent falls and balance issues, does not use a cane or walker to ambulate, and does drive. CTA head done on admission did not show any aneurysms or hemodynamically significant stenosis or occlusion. MRI brain did not show any acute stroke. HbA1c 6, LDL 118. Impression Diplopia, dizziness- left 6th nerve palsy Uncontrolled hypertension, hypertensive urgency Plan ?MRI brain and CTA head reviewed?no acute stroke or aneurysm/stenosis or occlusion, MRV negative ?Better blood pressure control with goal blood pressure less than 130/80 mmHg. Will defer to the primary team. Patient was counseled to be compliant with blood pressure medications. He understands the same ?EEG-no epileptiform discharges, or seizures. Multiple apnea episodes ?TTE-EF 65%, normal LA size, no PFO ?Trial of Mestinon 60 mg p.o. q. 8 hourly. ?Trial of IVIG 0.4 g/kg per dose for 3 to 5 days. Side effects discussed in detail with patient -paraneoplastic ab and west Nile AB-p -LP- CSF cell count-WBC 7, RBCs 6, protein-53, glucose-59. Lyme, EVA, HSV/EBV/CMV PCR-p ?Acetylcholine receptor binding blocking and modulating antibodies, Lyme's antibody and EVA level-p. ?Polysomnography testing as outpatient to rule out sleep apnea ?ID consult ?GI/DVT prophylaxis ?PT/OT ?Fall precautions ?Further medical management per hospitalist team ?Follow-up with neurology as outpatient in 4 weeks ?Please call with questions if any ?Thank you for allowing us to participate in patient's care and management
[2018-09-07 12:08] LABS: HSV 1 By PCR Negative (Negative)
[2018-09-07 12:17] LABS: HSV 2 By PCR Negative (Negative)
[2018-09-07 14:06] LABS: Cryptococcus Antigen CSF Negative (Negative)
--- NOTE | 2018-09-07 15:29 | PCM.PROGNOTE ---
Patient Problems: Active and Suspected Problems (Last Updated 09/01/18 @ 19:15 by Shaquille Louie DO) Cranial third nerve paralysis, right (Acute) Hypertensive emergency (Acute) Diplopia (Acute) Dizziness (Acute) Subjective: Has his eye patch off today. Tells me that the diplopia is better. Denies lightheadedness or vertigo. - Physical Exam General: Alert, Oriented x3, Cooperative, No apparent distress, Well developed, Well nourished, - - Looks better today. He is sitting up in a chair with his eye patch off talking with a friend. He has better color in his face and he is much more alert. Has been in bed the past 3 days when I have seen him. HEENT: DAVID, - - the left eye can still not track to the lateral side Oral: Moist Mucosa Lungs: Clear to auscultation Cardiovascular: Regular rate, Regular Rhythm, Normal S1, Normal S2, No Gallop Abdomen: Bowel Sounds Present, Soft, Non Tender, Non-Distended, Obese Extremities: No edema Skin: No rashes Neurological: - - sixth CN palsy on the left Psych/Mental Status: Normal Affect, Appropriate Vital Signs Temp Pulse Resp BP Pulse Ox 97.5 F L 74 19 H 132/84 H 96 09/07/18 14:26 09/07/18 14:26 09/07/18 14:26 09/07/18 14:26 09/07/18 14:26 Oxygen Delivery Method Room Air Weight: 264 lb 5.348 oz Body Mass Index (BMI) 40.1 Intake and Output for Last 24 Hours 09/05/18 09/06/18 09/07/18 23:59 23:59 23:59 Intake Total 836 / 836 495 / 918 923 / 923 Output Total 200 / 200 150 / 400 800 / 800 Balance 636 / 636 345 / 518 123 / 123 Microbiology Past 72 Hours 09/03/18 15:30 Gram Stain - Final Csf, Spinal Fluid CSF Culture - Final No growth in 72 hours. Laboratory Tests Past 24 Hrs 09/02/18 09/03/18 13:15 15:30 Angiotensin Convert Enz Pending Acetylcholine Recept Ab Pending Acetylchol Rcpt Block Ab Pending Acetylchol Rcpt Modu Ab Pending Lyme Total Antibody Pending HSV I DNA PCR Negative HSV II DNA PCR Negative Miscellaneous Cytology SEE PATHOLOGY REPORT Medical Necessity - Tobacco Use Smoking Status: Never smoker Tobacco Use: Non-smoker Assessment/Plan All Active Problems (Last Updated 09/01/18 @ 19:15 by Shaquille Louie DO) Cranial third nerve paralysis, right (Acute) Hypertensive emergency (Acute) Diplopia (Acute) Dizziness (Acute) Impressions 1. Left 6th cranial nerve palsy 2. Hypertension-uncontrolled 3. prediabetes in a morbidly obese patient 4. Suspected sleep disordered breathing -apparent on EEG 5. Morbid obesity 6. HLD Continue IVIG Continue pyridostigmine Continue lisinopril, hydrochlorothiazide and amlodipine Recheck BMP in the a.m. Will D/W Dr. Mckeon in the AM what the next step is since he seems to be improving somewhat Code Visit Inpatient E&M: 06713 Subs Hosp L2
[2018-09-07] MEDS: Immune Globulin 20 gm Premixed Solution IV (17:32)
[2018-09-07] MEDS: 0.9% NaCl Peripheral Flush Adult/Peds IV (17:42)
[2018-09-07] MEDS: Immune Globulin 10 gm Premixed Solution IV (19:58)
[2018-09-07] MEDS: MELATONIN 3 MG TABLET PO (22:09)
[2018-09-07] MEDS: Atorvastatin Calcium 80 MG Tablet PO (22:09)
[2018-09-08] VITALS (18 sets, daily range): BP systolic 122–158; BP diastolic 70–90; PULSE 56–70; RESP 16–19; TEMP 36.4–36.7; O2SAT 93–97
[2018-09-08] MEDS: Pyridostigmine Bromide 60 MG Tablet PO ×3 (06:09→21:19)
[2018-09-08 06:55] LABS: Anion Gap 9 (5-15); BUN 39 mg/dL (7-18); Calcium,Total 8.9 mg/dL (8.5-10.1); Chloride 97 mmol/L (98-107); EST Glomerular Filtration Rate 61 mL/min (>60); Est Glom Filt Rate - Afr Amer 74 mL/min (>60); Estimated Creatinine Clearance 63.58 ml/min; Glucose 97 mg/dL (74-106); Potassium 3.1 mmol/L (3.5-5.1); Sodium Level 134 mmol/L (136-145)
[2018-09-08] MEDS: hydroCHLOROthiazide 25 MG Tablet PO (09:48)
[2018-09-08] MEDS: amLODIPine 5 MG Tablet 10 MG PO (09:48)
[2018-09-08] MEDS: Lisinopril 20 MG Tablet PO (09:49)
[2018-09-08] MEDS: Acetaminophen 325 MG Tablet 650 MG PO (14:39)
[2018-09-08] MEDS: Immune Globulin 20 gm Premixed Solution IV (16:19)
[2018-09-08] MEDS: 0.9% NaCl Peripheral Flush Adult/Peds IV (16:24)
[2018-09-08] MEDS: Atorvastatin Calcium 80 MG Tablet PO (21:19)
[2018-09-09] VITALS (12 sets, daily range): BP systolic 93–155; BP diastolic 55–93; PULSE 67–81; RESP 16–18; TEMP 36.1–36.8; O2SAT 94–98
[2018-09-09] MEDS: Pyridostigmine Bromide 60 MG Tablet PO ×2 (06:03→14:12)
[2018-09-09] MEDS: amLODIPine 5 MG Tablet 10 MG PO (09:03)
[2018-09-09] MEDS: hydroCHLOROthiazide 25 MG Tablet PO (09:03)
[2018-09-09] MEDS: Lisinopril 20 MG Tablet PO (09:03)
--- NOTE | 2018-09-09 09:55 | PCM.PN.NEU ---
Patient Problems: Active and Suspected Problems (Last Updated 09/01/18 @ 19:15 by Shaquille Louie DO) Cranial third nerve paralysis, right (Acute) Hypertensive emergency (Acute) Diplopia (Acute) Dizziness (Acute) Subjective: No issues overnight. Care discussed with treating hospitalist. Per patient denies any dizziness and his diplopia has almost resolved. Continues to have left 6th nerve palsy. - Physical Exam General: Alert HEENT: Normocephalic Neck: Supple Lungs: Normal air movement Cardiovascular: Normal S1, Normal S2 Abdomen: Bowel Sounds Present Extremities: No cyanosis Neurological: - - Conscious, alert, CN?no ptosis at present, left 6th nerve palsy, pupils PERRLA, power 5 x 5 both upper and lower extremities, no sensory loss noted, no cerebellar signs,Reflexes + B/L B/S/T/K/A, plantars bilateral flexor, gait deferred, no NR Psych/Mental Status: Normal Affect Vital Signs Temp Pulse Resp BP Pulse Ox 98.1 F 70 18 155/93 H 94 09/09/18 08:53 09/09/18 08:53 09/09/18 08:53 09/09/18 08:53 09/09/18 08:53 Oxygen Delivery Method Room Air Weight: 119.9 kg Body Mass Index (BMI) 40.1 Intake and Output for Last 24 Hours 09/07/18 09/08/18 09/09/18 23:59 23:59 23:59 Intake Total 1573 / 1926 1238 / 1238 240 / 240 Output Total 800 / 800 675 / 675 250 / 250 Balance 773 / 1126 563 / 563 -10 / -10 Microbiology Past 72 Hours 09/03/18 15:30 Gram Stain - Final Csf, Spinal Fluid CSF Culture - Final No growth in 72 hours. Laboratory Tests Past 24 Hrs 09/02/18 13:15 Angiotensin Convert Enz Acetylcholine Recept Ab Acetylchol Rcpt Block Ab Lyme Total Antibody Medical Necessity - Tobacco Use Smoking Status: Never smoker Tobacco Use: Non-smoker Assessment/Plan All Active Problems (Last Updated 09/01/18 @ 19:15 by Shaquille Louie DO) Cranial third nerve paralysis, right (Acute) Hypertensive emergency (Acute) Diplopia (Acute) Dizziness (Acute) The patient is a 53 year old M with PMH HTN (not on medications), morbid obesity, psoriasis admitted with dizziness and diplopia. Per patient he started noticing some dizziness where he would feel funny and lightheaded followed by diplopia started 08/31/2018, later his symptoms improved but then again he felt dizziness and diplopia 09/01/2018 following which he was admitted to the hospital. He denies any headache, fever, neck stiffness, focal motor weakness, facial weakness, sensory loss, speech disturbances or vision loss. Per ED and hospitalist documentation on admission patient was noticed to have right eye deviated outside with possible 3rd nerve palsy. At present patient does not have any cranial nerve palsy on examination and per patient his diplopia is much better. He was found to have uncontrolled high blood pressure with SBP > 210 mmHg since admission. Per brother and mother he is noncompliant with his blood pressure medications, per mother he does snore a lot and also stops breathing at night while sleeping. Per patient he mostly lives with his mother, denies any frequent falls and balance issues, does not use a cane or walker to ambulate, and does drive. CTA head done on admission did not show any aneurysms or hemodynamically significant stenosis or occlusion. MRI brain did not show any acute stroke. HbA1c 6, LDL 118. Impression Diplopia, dizziness- left 6th nerve palsy Uncontrolled hypertension, hypertensive urgency Plan ?MRI brain and CTA head reviewed?no acute stroke or aneurysm/stenosis or occlusion, MRV negative ?Better blood pressure control with goal blood pressure less than 130/80 mmHg. Will defer to the primary team. Patient was counseled to be compliant with blood pressure medications. He understands the same ?EEG-no epileptiform discharges, or seizures. Multiple apnea episodes ?TTE-EF 65%, normal LA size, no PFO ?Discontinue Mestinon -paraneoplastic ab and west Nile AB-p -LP- CSF cell count-WBC 7, RBCs 6, protein-53, glucose-59. Lyme, EVA, HSV/EBV/CMV PCR-p ?Acetylcholine receptor binding blocking-negative but ACH receptor modulating antibodies-p, Lyme's antibody-negative and EVA level-p. ?Polysomnography testing as outpatient to rule out sleep apnea ?ID consult appreciated ?GI/DVT prophylaxis ?PT/OT ?Fall precautions ?Further medical management per hospitalist team ?Follow-up with neurology as outpatient in 2-4 weeks ?Please call with questions if any ?Thank you for allowing us to participate in patient's care and management
--- NOTE | 2018-09-09 12:47 | PCM.PN.BLA ---
Progress Note Late entry for 09/08/18 He is once again not using the eye patch today and he tells me that his double vision is improving. He denies dizziness or lightheadedness. He has no nystagmus. The left eye still will not abduct past midline. Alert and oriented x3 Lungs-clear to auscultation Heart-regular rate and rhythm, no gallop Abdomen-soft, nontender, nondistended, bowel sounds present No peripheral edema Impressions 1. Persistent left 6th cranial nerve palsy despite Mestinon and IVIG Discussed with Dr. Mckeon-we will keep in the hospital today and administer the fifth and final dose of IVIG tomorrow. Probable discharge in the a.m. Code Visit Inpatient E&M: 27452 Subs Hosp L1
--- NOTE | 2018-09-09 12:48 | PCM.DC ---
- Discharge Diagnoses Current Active Problems: Current Active and Chronic Problems (Last Updated 09/01/18 @ 19:15 by Shaquille Louie DO) Cranial third nerve paralysis, right (Acute) Hypertensive emergency (Acute) Diplopia (Acute) Dizziness (Acute) You will use the following diet at home:: No restrictions Your food should be the consistency of: Regular Your liquids should be the consistency of: Regular/Thin Discharge Activity: Return to Normal Activity Call your doctor if you observe: Fever of 101 or Higher, Dizziness, - - worsening double vision, slurred speech, unilateral numbness or weakness Instructions: Pyridostigmine [place] Oral tablet, Lisinopril Oral tablet, When Your Child Has Myasthenia Gravis (MG), High Blood Pressure (Hypertension) Additional Instructions: 1. 2 of the 3 tests for myasthenia Gravis are negative. The third test is still pending at the time of discharge. I am sending you home with a prescription for Mestinon because you seem to be getting better. The test for Lyme's disease is indeterminate. The testing for West Nile Virus is pending. The test for Herpes infection is negative. Dr. Mckeon will discuss the findings of the tests that are still pending at your next visit with him. 2. You need to get yourself established with a PCP. You will need to have the blood pressure rechecked in 1-2 weeks. You are being discharged on 2 antihypertensive drugs and they are Lisinopril and Procardia XL. These are both once a day drugs and so take them at about the same time every day. 3. The path report on the cerebrospinal fluid was negative for malignant cells. 4. Be very careful driving since you still can not move the Left eye past the midline and your peripheral vision will be impaired. Pending Tests on Discharge: West Nile testing and the third ACH rR test. Allergies/Adverse Reactions: Allergies No Known Allergies Allergy (Verified 09/01/18 15:42) Medications to take at Discharge Lisinopril [Zestril] 20 mg PO DAILY #30 tab 09/09/18 Nifedipine [Procardia Xl] 30 mg PO DAILY #30 tab.er.24 09/09/18 Pyridostigmine [place] [Mestinon] 60 mg PO Q8 #63 tab 09/09/18 The following prescriptions were given: Pyridostigmine [place] [Mestinon] 60 mg PO Q8 #63 tab Prescription Printed Nifedipine [Procardia Xl] 30 mg PO DAILY #30 tab.er.24 Transmission Status: Pending to [facility] Lisinopril [Zestril] 20 mg PO DAILY #30 tab Transmission Status: Pending to [facility] Primary Care Physician: Care Physician,No Primary [Primary Care Provider] - Test Results: Test results from this visit will be discussed in further detail at your follow-up appointment, if applicable. Please Follow Up With: Mateusz Karimi MD Please Follow Up With: Shaquille Gregg MD When: 1-2 weeks Please Follow Up With: Zia Mckeon MD When: 3 weeks Proposed Discharge Date: 09/09/18
--- NOTE | 2018-09-09 13:05 | PCM.DC.SUM ---
Discharge Date and Diagnosis Date of Admission: 09/01/18 Date of Discharge: 09/09/18 - Primary Discharge Diagnosis Active and Suspected Problems (Last Updated 09/01/18 @ 19:15 by Shaquille Louie DO) Sixth cranial nerve paralysis (Acute) Hypertensive emergency (Acute) Diplopia (Acute) Acute kidney injury (Acute) -- due to addition of diuretics to his drug regimen Hyponatremia (Acute) Hypokalemia (Acute) - Secondary Discharge Diagnosis Chronic Problems (Last Updated 09/01/18 @ 19:15 by Shaquille Louie DO) Morbid obesity with BMI of 40.0-44.9, adult (Chronic) Hospital Course and Treatment Imaging Results: Clinical Impression(s) from Imaging Studies Brain CT 09/01/18 16:03 IMPRESSION: No acute intracranial abnormality. Electronically Signed: Sky Sampson at 16:53 EDT Tel , Service support , Head CTA 09/01/18 17:07 IMPRESSION: Normal modoc of [place] without a demonstrated aneurysm or hemodynamically significant stenosis. Electronically Signed: Kenneth Benson MD at 18:04 EDT , Service support , Brain MRI 09/02/18 08:30 IMPRESSION: No evidence of lesion or enhancement within the course of the bilateral oculomotor nerves. No evidence of abnormal enhancement or lesion within the region of the orbits. Electronically Signed: Lewis Mcnamara DO at 12:19 EDT , Service support , ADDENDUM: 09/11/18 0823 ADDENDUM: 09/11/18 0823 Neck MRA 09/02/18 08:30 IMPRESSION: No evidence of significant steno-occlusive disease or aneurysm. Electronically Signed: Lewis Mcnamara DO at 13:08 EDT , Service support , Brain MRI 09/05/18 08:03 IMPRESSION: Normal unenhanced MRV of the brain. Electronically Signed: Juwan Paula MD at 9:40 EDT Tel , Service support , Laboratory Results - last 24 hr 09/03/18 15:30 CSF Cryptococcus Ag Negative CSF West Nile IgG Ab Negative CSF West Nile IgM Ab Negative Microbiology 09/03/18 15:30 Csf, Spinal Fluid Gram Stain - Final 09/03/18 15:30 Csf, Spinal Fluid CSF Culture - Final No growth in [address] Fredy Mckeon-neurology Operations: None Procedures: 2-D Echocardiogram - nterpretation Summary The study was technically difficult. Contrast injection was performed. Left ventricular systolic function is normal. The estimated ejection fraction is 65 %. Moderate concentric left ventricular hypertrophy. Trivial mitral valve insufficiency. Trivial tricuspid valve insufficiency. Mild focal aortic valve calcification. Right ventricular systolic pressure estimated to be 37 mmHg. Transmitral doppler flow suggestive of impaired relaxation of left ventricle Bubble contrast study negative for right to left interatrial shunt., Electroencephalogram - EEG Interpretation This is an abnormal EEG due to the presence of multiple episodes of apnea noted during the record. Patient should be evaluated by treating physician for sleep apnea. Clinical correlation is advised. There is no epileptiform discharges or electrographic seizures noted during the record. Summary of Care Provided: The patient is a 53 year old M with a past medical history of obesity no outpatient medications who presented to the emergency department at [facility] on 09/01/2018 complaining of diplopia. He also complained of feeling dizzy and weak overall. In the emergency department his blood pressure was markedly increased at 220/129. On physical examination the right eye was deviated laterally and he had nystagmus. Ophthalmology was contacted and recommended a CTA of the brain. Dr. Mckeon was consulted and recommended MRI of the brain and CTA of the head and these were negative. MRA of the head and neck were negative. Following admission the 6th cranial nerve palsy resolved but the patient developed a left cranial nerve III palsy. Lumbar puncture was recommended. Lumbar puncture had 7 white blood cells and an increased protein at 53. Cryptococcal antigen, West Nile IgG and IgM in the CSF were negative. 2 of 3 acetylcholine receptor antibodies were negative and the third is still pending. HSV-1 and HSV-2 PCR's were negative. Cytology was negative for malignant cells. Lyme total antibody was negative. EEG was abnormal due to the presence of multiple episodes of apnea noted during the recording. There was no epileptiform discharge or electrographic seizures noted. MRV was negative. He was seen in consultation by Dr. Su on 09/06/2018 who agreed with observing him off antibiotics since there was no evidence of meningitis/encephalitis. On 09/05/2018 he was started on Mestinon 60 mg p.o. every 8 hours and IVIG 0.4 g/kg per dose for 3 to 5 days. Over the course of the next 5 days his diplopia improved however he was left with a left cranial nerve palsy that did not change. He was discharged home with a prescription for Mestinon since the third acetylcholine antibody test was still pending. He will follow-up with Dr. Mckeon in 3 weeks. He is planning on following with Dr. Shaquille Gregg in 1 to 2 weeks. He was given prescriptions for Procardia XL 30 mg once daily and Zestril 20 mg once daily for BP control. He should be referred for a sleep study as an OP since he had multiple apneic episodes on the EEG. PHYSICAL EXAM: GENERAL: alert, oriented X 3, Cooperative, NAD HEENT: no nystagmus, the left eye will still not adduct past the midline ORAL: moist mucosa, no mucosal lesions NECK: No JVD, supple, trachea midline LUNGS: CTA, symmetric chest expansion HEART: RRR, Normal S1 and S2, no rub, no gallop ABDOMEN: soft, NT, ND, BS present, no guarding with palpation EXTREMITIES: no edema, no cyanosis, no calf tenderness SKIN: No rashes, no breakdown NEUROLOGIC: no focal neurologic deficits except for the persistent Left CN palsy PSYCH: appropriate, normal affect, pleasant This note was generated with [employer] dictation software. It may contain incorrect words, spelling, and punctuation that were not noted in checking the note before signing. - Physical Exam Vital Signs Temp Pulse Resp BP Pulse Ox 98.1 F 70 18 155/93 H 94 09/09/18 08:53 09/09/18 08:53 09/09/18 08:53 09/09/18 08:53 09/09/18 08:53 Oxygen Delivery Method Room Air Weight: 264 lb 5.348 oz Body Mass Index (BMI) 40.1 Intake and Output for Last 24 Hours 09/07/18 09/08/18 09/09/18 23:59 23:59 23:59 Intake Total 1573 / 1926 1238 / 1238 480 / 480 Output Total 800 / 800 675 / 675 250 / 250 Balance 773 / 1126 563 / 563 230 / 230 Microbiology Past 72 Hours 09/03/18 15:30 Gram Stain - Final Csf, Spinal Fluid CSF Culture - Final No growth in 72 hours. Laboratory Tests Past 24 Hrs 09/02/18 13:15 Angiotensin Convert Enz Acetylcholine Recept Ab Acetylchol Rcpt Block Ab Lyme Total Antibody Discharge Activity: Return to Normal Activity Call your doctor if you observe: Fever of 101 or Higher, Dizziness, - - worsening double vision, slurred speech, unilateral numbness or weakness Home Medications: Medications to take at Discharge Lisinopril [Zestril] 20 mg PO DAILY #30 tab 09/09/18 Nifedipine [Procardia Xl] 30 mg PO DAILY #30 tab.er.24 09/09/18 Pyridostigmine [place] [Mestinon] 60 mg PO Q8 #63 tab 09/09/18 Following Prescrptions Were Given to Patient: Pyridostigmine [place] [Mestinon] 60 mg PO Q8 #63 tab Prescription Printed Nifedipine [Procardia Xl] 30 mg PO DAILY #30 tab.er.24 Transmission Status: Received by [facility] Lisinopril [Zestril] 20 mg PO DAILY #30 tab Transmission Status: Received by [facility] Primary Care Physician: Care Physician,No Primary [Primary Care Provider] - Please Follow Up With: Mateusz Karimi MD Please Follow Up With: Shaquille Gregg MD When: 1-2 weeks Please Follow Up With: Zia Mckeon MD When: 3 weeks Patient Instructions: Pyridostigmine [place] Oral tablet, Lisinopril Oral tablet, When Your Child Has Myasthenia Gravis (MG), High Blood Pressure (Hypertension) Disposition: Home Minutes spent on discharge:: 40 Patient Condition:: Stable Medical Necessity - Tobacco Use Smoking Status: Never smoker Tobacco Use: Non-smoker Meaningful Use Info Meaningful Use Diagnoses (Choose all that apply): None applicable Code Visit Inpatient E&M: 71049 Disch Hosp
[2018-09-09] MEDS: Immune Globulin 20 gm Premixed Solution IV (16:15)
[2018-09-09 16:44] LABS: West Nile Virus, IgG Negative (Negative); West Nile Virus, IgM Negative (Negative)
[2018-09-11 15:45] LABS: West Nile Virus, IgG CSF Negative (Negative); West Nile Virus, IgM CSF Negative (Negative)
== END 2018-09-09 18:01 | disposition home or self-care (01) | DRG 123 ==
LOC: ED 17:48 → PCU 19:20
PROVIDERS: Internal Medicine; Physician Assistant; Psychiatry & Neurology Neurology; Emergency Provider Emergency Medicine; Visit Provider Internal Medicine
DX: H49.22 Sixth [abducent] nerve palsy, left eye (principal); I16.1 Hypertensive emergency; Z68.41 Body mass index [BMI] 40.0-44.9, adult; N17.9 Acute kidney failure, unspecified; E87.1 Hypo-osmolality and hyponatremia; E66.01 Morbid (severe) obesity due to excess calories; E87.6 Hypokalemia; H53.2 Diplopia
CPT/HCPCS: 36415; 70450; 70496; 70544; 70549; 70553; 80048; 80053; 80061; 82164; 82945; 82962; 83036; 83519; 83735; 84157; 84238; 84443; 85025; 86618; 86788; 86789; 87070; 87205; 87529; 87899; 88108; 88313; 89050; 89051; 93306; 95819; 97161; 97166; 97802; 99285; A9575; J7030; J7040; Q9957; Q9967; A4216; C8929; J1568; J2405

== ENCOUNTER → 2018-09-22 | Outpatient (CLI) | payer BC, SELFPAY ==
[2018-09-22 14:43] VITALS: BMI 40.6
[2018-09-22 17:37] LABS: Absolute Lymphocyte Count 2.49 X10^3/uL (0.83-4.51); Absolute Neutrophil Count 6.1 X10^3/uL (2.0-7.7); Basophil# 0.04 X10^3/uL; Basophil% 0.4 % (0-1); Eosinophil# 0.12 X10^3/uL; Eosinophils% 1.3 % (0-5); Hematocrit 44.4 % (40-54); Hemoglobin 14.7 g/dL (13.0-16.5); Lymphocyte # 2.49 X10^3/ul (4.0); Lymphocyte % 26.2 % (19-41); Mean Corp Hgb Conc 33.1 g/dL (32-36); Mean Corpuscular Hgb 28.6 pg (27.0-32.0); Mean Corpuscular Volume 86.4 fL (80-94); Mean Platelet Vol. 11.4 fl (6.2-12.0); Monocyte# 0.75 X10^3/uL; Monocyte% 7.9 % (0-10); NRBC Flagged by Analyzer 0 % (0-5); Neutrophil # 6.08 X10^3/uL (2.7-7.7); Neutrophil % 63.9 % (47-70); Platelet Count 336 K/mm3 (150-450); RBC Distribution Width CV 12.8 % (11.6-14.6); RBC Distribution Width SD 40.1 fl (35.1-43.9); Red Blood Count 5.14 M/mm3 (4.6-6.2); White Blood Count 9.5 K/mm3 (4.4-11.0)
[2018-09-22 17:45] LABS: ALB/GLOB Ratio 0.8 RATIO (0.9-2.4); AST(SGOT) 21 U/L (15-37); Alanine Aminotransfer ALT/SGPT 41 U/L (16-61); Albumin, Serum 3.7 g/dL (3.2-5.0); Alkaline Phosphatase 131 U/L (45-117); Anion Gap 7 (5-15); BUN 26 mg/dL (7-18); BUN/Creat Ratio 26.7 RATIO (10-20); Calcium,Total 9.1 mg/dL (8.5-10.1); Chloride 106 mmol/L (98-107); Creatinine, Serum 0.97 mg/dL (0.70-1.30); EST Glomerular Filtration Rate 85 mL/min (>60); Est Glom Filt Rate - Afr Amer 103 mL/min (>60); Globulin 4.5 g/dL (2.2-4.2); Glucose 86 mg/dL (74-106); Potassium 4.1 mmol/L (3.5-5.1); Protein, Total 8.2 g/dL (6.4-8.2); Sodium Level 139 mmol/L (136-145)
== END | disposition home or self-care (01) ==
LOC: MFPLAB 14:43
PROVIDERS: Family Provider Family Medicine; PCP Family Medicine; Referring Provider Family Medicine; Visit Provider Family Medicine
DX: Z86.69 Personal history of other diseases of the nervous system and sense organs (principal)
CPT/HCPCS: 36415; 80053; 85025

== ENCOUNTER → 2018-11-03 | Outpatient (CLI) | payer BC, SELFPAY ==
[2018-09-22 14:43] VITALS: BMI 40.6
[2018-11-03 14:37] LABS: ALB/GLOB Ratio 0.9 RATIO (0.9-2.4); AST(SGOT) 17 U/L (15-37); Alanine Aminotransfer ALT/SGPT 32 U/L (16-61); Albumin, Serum 3.6 g/dL (3.2-5.0); Alkaline Phosphatase 118 U/L (45-117); Anion Gap 10 (5-15); BUN 26 mg/dL (7-18); BUN/Creat Ratio 24.8 RATIO (10-20); Calcium,Total 9.1 mg/dL (8.5-10.1); Chloride 110 mmol/L (98-107); Creatinine, Serum 1.05 mg/dL (0.70-1.30); EST Glomerular Filtration Rate 78 mL/min (>60); Est Glom Filt Rate - Afr Amer 95 mL/min (>60); Glucose 81 mg/dL (74-106); Protein, Total 7.6 g/dL (6.4-8.2); Sodium Level 144 mmol/L (136-145)
[2018-11-03 18:39] LABS: Microalbumin,Random Urine 76.3 mg/L (NO RANGE EST.); Microalbumin:Creatinine Ratio 30.6 mg/g CRE (<30 mg/g CRE)
== END | disposition home or self-care (01) ==
LOC: MFPLAB 11:41
PROVIDERS: Family Provider Family Medicine; PCP Family Medicine; Referring Provider Family Medicine; Visit Provider Family Medicine
DX: I10 Essential (primary) hypertension (principal)
CPT/HCPCS: 36415; 80053; 82043; 82570

== ENCOUNTER → 2019-08-21 16:56 | Outpatient (CLI) | payer BC, SELFPAY ==
[2018-09-22 14:43] VITALS: BMI 40.6
[2019-08-21 18:29] LABS: Microalbumin,Random Urine 90.7 mg/L (NO RANGE EST.); Microalbumin:Creatinine Ratio 32.2 mg/g CRE (<30 mg/g CRE)
[2019-08-21 18:33] LABS: ALB/GLOB Ratio 0.9 RATIO (0.9-2.4); AST(SGOT) 19 U/L (15-37); Alanine Aminotransfer ALT/SGPT 32 U/L (16-61); Albumin, Serum 3.8 g/dL (3.2-5.0); Alkaline Phosphatase 113 U/L (45-117); Anion Gap 7 (5-15); BUN 24 mg/dL (7-18); BUN/Creat Ratio 24.1 RATIO (10-20); Calcium,Total 9.3 mg/dL (8.5-10.1); Chloride 106 mmol/L (98-107); EST Glomerular Filtration Rate 83 mL/min (>60); Est Glom Filt Rate - Afr Amer 101 mL/min (>60); Globulin 4.2 g/dL (2.2-4.2); Glucose 82 mg/dL (74-106); Potassium 3.8 mmol/L (3.5-5.1); Sodium Level 139 mmol/L (136-145)
== END ==
PROVIDERS: PCP Family Medicine; Referring Provider Family Medicine; Visit Provider Family Medicine
DX: I10 Essential (primary) hypertension (principal); R80.9 Proteinuria, unspecified
CPT/HCPCS: 36415; 80053; 82043; 82570

== ENCOUNTER 2020-02-16 05:43 | Day surgery (SDC) | payer BC, SELFPAY ==
[2018-09-22 14:43] VITALS: BMI 40.6
[2020-02-16] VITALS (8 sets, daily range): BP systolic 79–142; BP diastolic 39–84; PULSE 59–66; RESP 16; TEMP 35.7–36.6; O2SAT 92–100; BMI 38.2
--- NOTE | 2020-02-16 06:15 | PCM.HP.STD ---
Problem List (1) Screening for intestinal cancer Status: Acute History of Present Illness Date of Admission: 02/16/20 The patient is a 55 year old M who presents for screening colonoscopy today. He has never had a previous colonoscopy. He denies bright red blood per rectum or melena. No abdominal pain. He denies any personal or family history of colon cancer. He denies any history of DVT in his legs. Approximately a year ago he had a hypertensive emergency. He otherwise denies stroke or myocardial infarction. Past Medical History Past Medical History (Chronic Problems): Chronic Problems (Last Updated 09/01/18 @ 19:[address] Shaquille Louie DO) Morbid obesity with BMI of 40.0-44.9, adult (Chronic) Medical History: Medical History (Last Updated 09/01/18 @ 19:[address] Shaquille Louie DO) Psoriasis L40.9 Allergies No Known Allergies Allergy (Verified 02/16/20 06:07) Home Medications: Ambulatory Orders Medication Instructions Recorded Lisinopril [Zestril] 20 mg PO DAILY #30 tab 09/09/18 Indapamide 1.25 mg PO DAILY 02/14/20 Smoking Status: Never smoker Tobacco Use: Non-smoker - *Family History Maternal History Items: - - No stroke Review of Systems Constitutional: Denies: Fever, Night Sweats Cardiovascular: Denies: Chest Pain Respiratory: Denies: Cough, Shortness of Breath Gastrointestinal: Denies: Abdominal Pain, Hematochezia, Melena Endocrine: Denies: Change in Body Habitus VTE Information - Inpt Only VTE Present on Admission: No - Physical Exam Vitals/I&O's: Body Mass Index (BMI) 40.6 General: Alert, Oriented x3, Cooperative, No apparent distress Lungs: Clear to auscultation, Normal air movement Cardiovascular: Regular rate, Regular Rhythm Abdomen: Bowel Sounds Present, Soft, Non Tender Extremities: No Calf Tenderness Neurological: - - Normal cognition Psych/Mental Status: Normal Affect Microbiology Past 72 Hours 02/14/20 11:15 Interface Orders SARS-CoV-2 Antigen (Rapid) - Final Assessment/Plan All Active Problems (Last Updated 09/01/18 @ 19:[address] Shaquille Louie DO) Screening for intestinal cancer (Acute) Acute kidney injury (Acute) Hyponatremia (Acute) Hypokalemia (Acute) Sixth cranial nerve paralysis (Acute) Hypertensive emergency (Acute) Diplopia (Acute) 55-year-old gentleman presents for screening colonoscopy today via our our open access program. He has had an opportunity to ask and have questions answered. He is aware of the technique, benefit, risk, alternatives. We will proceed as noted. Rob Galvan M.D., F.A.C.S. Procedure Criteria Procedure Type: Elective COVID Risk Discussion: The surgeon/proceduralist and patient have discussed in detail the risk of exposure to and/or potential harm posed by the COVID-19 virus with having a surgery/procedure at this time versus the risk of delaying the surgery/procedure. It is not possible to know either the risk of delaying the surgery or procedure or chance of getting an infection with perfect accuracy, but a joint decision was made between the patient and the surgeon/proceduralist to proceed at this time with the scheduled surgery/procedure as indicated on the consent form.
[2020-02-16] MEDS: Lactated Ringers 1,000 ML 100 ML IV (06:29)
--- NOTE | 2020-02-16 07:30 | OP.COLON_ITS ---
Patient Name: Marcelino Long Procedure Date: 02/16/2020 7:01 AM Date of : 1965 Age: 55 Procedure: Colonoscopy Indications: Screening for colorectal malignant neoplasm Providers: Rob Galvan MD Referring MD: Shaquille Gregg Medicines: Midazolam 4 mg IV, Meperidine 100 mg IV Patient Profile: Last Colonoscopy: none. The patient's first colonoscopy is today. Complications: No immediate complications. Procedure: Pre-Anesthesia Assessment: - Prior to the procedure, a History and Physical was performed, and patient medications and allergies were reviewed. The patient's tolerance of previous anesthesia was also reviewed. The risks and benefits of the procedure and the sedation options and risks were discussed with the patient. All questions were answered, and informed consent was obtained. Prior Anticoagulants: The patient has taken no previous anticoagulant or antiplatelet agents. ASA Grade Assessment: II - A patient with mild systemic disease. After reviewing the risks and benefits, the patient was deemed in satisfactory condition to undergo the procedure. After I obtained informed consent, the scope was passed under direct vision. Throughout the procedure, the patient's blood pressure, pulse, and oxygen saturations were monitored continuously. The colonoscope was introduced through the anus and advanced to the cecum, identified by appendiceal orifice and ileocecal valve. The colonoscopy was performed without difficulty. The patient tolerated the procedure well. The quality of the bowel preparation was good. The ileocecal valve and the appendiceal orifice were photographed. Moderate Sedation: Moderate (conscious) sedation was personally administered by the endoscopist. The following parameters were monitored: oxygen saturation, heart rate, blood pressure, and response to care. Total physician intraservice time was 15 minutes. Scope In: 7:13:32 AM Scope Withdrawal Time 0 hours 6 minutes 30 seconds Scope Out: 7:25:32 AM Total Procedure Duration Time 0 hours 12 minutes 0 seconds Findings: The digital rectal exam findings include internal hemorrhoids (Grade I) and enlarged prostate. Scattered diverticula were found in the sigmoid colon. The exam was otherwise without abnormality. Impression: - Internal hemorrhoids (Grade I) and enlarged prostate found on digital rectal exam. - Diverticulosis in the sigmoid colon. - The examination was otherwise normal. - No specimens collected. Recommendation: - Discharge patient to home. - Resume previous diet. - Continue present medications. - Repeat colonoscopy in 10 years for screening purposes. Procedure Code(s): --- Professional --- 02217, Colonoscopy, flexible; diagnostic, including collection of specimen(s) by brushing or washing, when performed (separate procedure) 09999, 59, Moderate sedation services provided by the same physician or other qualified health home care coordinator performing the diagnostic or therapeutic service that the sedation supports, requiring the presence of an independent trained observer to assist in the monitoring of the patient's level of consciousness and physiological status; initial 15 minutes of intraservice time, patient age 5 years or older Diagnosis Code(s): --- Professional --- Z12.11, Encounter for screening for malignant neoplasm of colon K64.0, First degree hemorrhoids N40.0, Benign prostatic hyperplasia without lower urinary tract symptoms K57.30, Diverticulosis of large intestine without perforation or abscess without bleeding CPT copyright 2017 [employer]. All rights reserved. The codes documented in this report are preliminary and upon field sales engineer review may be revised to meet current compliance requirements. Rob Galvan MD 02/16/2020 7:29:45 AM This report has been signed electronically. Number of Addenda: 0 Note Initiated On: 02/16/2020 7:01 AM
--- NOTE | 2020-02-16 07:30 | OP.CCLET_ITS ---
02/16/2020 Shaquille Gregg [address] [address] [place] [address] Re : Colonoscopy procedure for Marcelino Long Dear Dr. Gregg This procedure was performed on Sunday, February 16, 2020. My impressions and recommendations are as follows: Impressions : - Internal hemorrhoids (Grade I) and enlarged prostate found on digital rectal exam. - Diverticulosis in the sigmoid colon. - The examination was otherwise normal. - No specimens collected. Recommendations : - Discharge patient to home. - Resume previous diet. - Continue present medications. - Repeat colonoscopy in 10 years for screening purposes. My findings are described in the full procedure note, which is enclosed. If I can be of further assistance, please feel free to contact me at Doctor phone number(s): Work: . Sincerely, Rob Galvan MD 02/16/2020 7:29:45 AM This report has been signed electronically.
== END 2020-02-16 08:50 | disposition home or self-care (01) ==
LOC: EN 05:50 → AC 05:50
PROVIDERS: PCP Family Medicine; Referring Provider Family Medicine; Visit Provider Surgery
PROC: 0DJD8ZZ Inspection of Lower Intestinal Tract, Via Natural or Artificial Opening Endoscopic (ICD-10-PCS; CPT 45378; principal; 2020-02-16 06:55)
DX: Z12.11 Encounter for screening for malignant neoplasm of colon (principal); K57.30 Diverticulosis of large intestine without perforation or abscess without bleeding; K64.0 First degree hemorrhoids; Z20.828 Contact with and (suspected) exposure to other viral communicable diseases; E66.01 Morbid (severe) obesity due to excess calories; Z68.41 Body mass index [BMI] 40.0-44.9, adult; Z79.899 Other long term (current) drug therapy
CPT/HCPCS: 45378; 87426; 99152; 99153; C9803; J7120

== ENCOUNTER → 2020-02-21 16:58 | Outpatient (CLI) | payer BC, SELFPAY ==
[2020-02-16 06:25] VITALS: BMI 38.2
[2020-02-21 18:11] LABS: Absolute Lymphocyte Count 2.63 X10^3/uL (0.83-4.51); Absolute Neutrophil Count 6.4 X10^3/uL (2.0-7.7); Basophil# 0.06 X10^3/uL; Basophil% 0.6 % (0-1); Eosinophil# 0.12 X10^3/uL; Eosinophils% 1.2 % (0-5); Hematocrit 45.9 % (40-54); Hemoglobin 14.5 g/dL (13.0-16.5); Lymphocyte # 2.63 X10^3/ul (4.0); Mean Corp Hgb Conc 31.6 g/dL (32-36); Mean Corpuscular Volume 85.5 fL (80-94); Mean Platelet Vol. 11.2 fl (6.2-12.0); Monocyte# 0.89 X10^3/uL; Monocyte% 8.8 % (0-10); NRBC Flagged by Analyzer 0 % (0-5); Neutrophil % 63.2 % (47-70); Platelet Count 343 K/mm3 (150-450); RBC Distribution Width CV 13.3 % (11.6-14.6); RBC Distribution Width SD 41.8 fl (35.1-43.9); Red Blood Count 5.37 M/mm3 (4.6-6.2); White Blood Count 10.1 K/mm3 (4.4-11.0)
[2020-02-21 18:39] LABS: ALB/GLOB Ratio 0.9 RATIO (0.9-2.4); AST(SGOT) 11 U/L (15-37); Alanine Aminotransfer ALT/SGPT 31 U/L (16-61); Albumin, Serum 3.8 g/dL (3.2-5.0); Alkaline Phosphatase 127 U/L (45-117); Anion Gap 7 (5-15); BUN 31 mg/dL (7-18); BUN/Creat Ratio 32.7 RATIO (10-20); Calcium,Total 9.5 mg/dL (8.5-10.1); Chloride 109 mmol/L (98-107); Cholesterol 194 mg/dL (200); Creatinine, Serum 0.95 mg/dL (0.70-1.30); EST Glomerular Filtration Rate 88 mL/min (>60); Est Glom Filt Rate - Afr Amer 106 mL/min (>60); Globulin 4.3 g/dL (2.2-4.2); Glucose 66 mg/dL (74-106); High Density Lipoprotein 47 mg/dL; PSA,Total - Annual Screen 1.74 ng/mL (0.00-4.00); Potassium 3.7 mmol/L (3.5-5.1); Protein, Total 8.1 g/dL (6.4-8.2); Sodium Level 141 mmol/L (136-145)
== END ==
PROVIDERS: PCP Family Medicine; Referring Provider Family Medicine; Visit Provider Family Medicine
DX: I27.20 Pulmonary hypertension, unspecified (principal); I10 Essential (primary) hypertension; Z12.5 Encounter for screening for malignant neoplasm of prostate
CPT/HCPCS: 36415; 80053; 82465; 83718; 84153; 85025; G0103

== ENCOUNTER → 2020-11-25 10:07 | Outpatient (CLI) | payer OTHER, SELFPAY ==
[2020-11-25 12:15] LABS: Absolute Lymphocyte Count 2.19 X10^3/uL (0.83-4.51); Absolute Neutrophil Count 5.1 X10^3/uL (2.0-7.7); Basophil# 0.05 X10^3/uL; Basophil% 0.6 % (0-1); Eosinophil# 0.15 X10^3/uL; Eosinophils% 1.8 % (0-5); Hemoglobin 14.9 g/dL (13.0-16.5); Lymphocyte # 2.19 X10^3/ul (0.83-4.51); Lymphocyte % 26.7 % (19-41); Mean Corp Hgb Conc 33.1 g/dL (32-36); Mean Corpuscular Hgb 28.2 pg (27.0-32.0); Mean Corpuscular Volume 85.2 fL (80-94); Mean Platelet Vol. 11.1 fl (6.2-12.0); Monocyte# 0.65 X10^3/uL; Monocyte% 7.9 % (0-10); NRBC Flagged by Analyzer 0 % (0-5); Neutrophil # 5.14 X10^3/uL (2.7-7.7); Neutrophil % 62.8 % (47-70); Platelet Count 340 K/mm3 (150-450); RBC Distribution Width CV 13.3 % (11.6-14.6); RBC Distribution Width SD 41.8 fl (35.1-43.9); Red Blood Count 5.28 M/mm3 (4.6-6.2); White Blood Count 8.2 K/mm3 (4.4-11.0)
[2020-11-25 12:35] LABS: Microalbumin,Random Urine 20.8 mg/L (NO RANGE EST.)
[2020-11-25 12:36] LABS: ALB/GLOB Ratio 0.9 RATIO (0.9-2.4); AST(SGOT) 17 U/L (15-37); Alanine Aminotransfer ALT/SGPT 37 U/L (16-61); Albumin, Serum 3.8 g/dL (3.2-5.0); Alkaline Phosphatase 129 U/L (45-117); Anion Gap 2 (5-15); BUN 24 mg/dL (7-18); BUN/Creat Ratio 24.8 RATIO (10-20); Calcium,Total 9.4 mg/dL (8.5-10.1); Chloride 105 mmol/L (98-107); Creatinine, Serum 0.97 mg/dL (0.70-1.30); EST Glomerular Filtration Rate 85 mL/min (>60); Est Glom Filt Rate - Afr Amer 103 mL/min (>60); Globulin 4.4 g/dL (2.2-4.2); Glucose 118 mg/dL (74-106); Potassium 3.7 mmol/L (3.5-5.1); Protein, Total 8.2 g/dL (6.4-8.2); Sodium Level 137 mmol/L (136-145); Thyroid Stim Hormone (TSH) 1.18 uIU/mL (0.358-3.74)
== END ==
PROVIDERS: PCP Family Medicine; Referring Provider Family Medicine; Visit Provider Family Medicine
DX: I27.20 Pulmonary hypertension, unspecified (principal); I10 Essential (primary) hypertension
CPT/HCPCS: 36415; 80053; 82043; 84443; 85025

== ENCOUNTER 2021-06-06 10:12 | Outpatient (CLI) | payer MEDICAID, SELFPAY ==
[2021-06-06 12:18] LABS: Absolute Neutrophil Count 4.5 X10^3/uL (2.0-7.7); Basophil# 0.05 X10^3/uL; Basophil% 0.7 % (0-1); Eosinophil# 0.16 X10^3/uL; Eosinophils% 2.1 % (0-5); Hematocrit 42.9 % (40-54); Hemoglobin 14.2 g/dL (13.0-16.5); Lymphocyte % 31.5 % (19-41); Mean Corp Hgb Conc 33.1 g/dL (32-36); Mean Corpuscular Hgb 28.3 pg (27.0-32.0); Mean Corpuscular Volume 85.6 fL (80-94); Monocyte# 0.55 X10^3/uL; Monocyte% 7.2 % (0-10); NRBC Flagged by Analyzer 0 % (0-5); Neutrophil # 4.45 X10^3/uL (2.7-7.7); Neutrophil % 58.2 % (47-70); Platelet Count 294 K/mm3 (150-450); RBC Distribution Width CV 13.5 % (11.6-14.6); RBC Distribution Width SD 42.4 fl (35.1-43.9); Red Blood Count 5.01 M/mm3 (4.6-6.2); White Blood Count 7.6 K/mm3 (4.4-11.0)
[2021-06-06 13:01] LABS: ALB/GLOB Ratio 0.9 RATIO (0.9-2.4); AST(SGOT) 18 U/L (15-37); Alanine Aminotransfer ALT/SGPT 37 U/L (16-61); Albumin, Serum 3.5 g/dL (3.2-5.0); Alkaline Phosphatase 104 U/L (45-117); Anion Gap 6 (5-15); BUN 24 mg/dL (7-18); BUN/Creat Ratio 23.5 RATIO (10-20); Calcium,Total 8.8 mg/dL (8.5-10.1); Chloride 106 mmol/L (98-107); Cholesterol 200 mg/dL (200); Creatinine, Serum 1.02 mg/dL (0.70-1.30); EST Glomerular Filtration Rate 80 mL/min (>60); Est Glom Filt Rate - Afr Amer 97 mL/min (>60); Globulin 3.9 g/dL (2.2-4.2); Glucose 109 mg/dL (74-106); High Density Lipoprotein 36 mg/dL; Potassium 3.8 mmol/L (3.5-5.1); Protein, Total 7.4 g/dL (6.4-8.2); Sodium Level 136 mmol/L (136-145); Thyroid Stim Hormone (TSH) 1.24 uIU/mL (0.358-3.74); Triglycerides 206 mg/dL; Very Low Density Lipoprotein 41 mg/dL (5-40)
== END 2021-06-06 23:59 | disposition home or self-care (01) ==
LOC: MFPLAB 10:12
PROVIDERS: PCP Family Medicine; Referring Provider Family Medicine; Visit Provider Family Medicine
DX: Z00.00 Encounter for general adult medical examination without abnormal findings (principal); I27.20 Pulmonary hypertension, unspecified; E66.01 Morbid (severe) obesity due to excess calories; I10 Essential (primary) hypertension
CPT/HCPCS: 36415; 80053; 80061; 83036; 84443; 85025

== ENCOUNTER → 2021-09-30 | Outpatient (CLI) | payer MEDICAID, SELFPAY ==
[2021-09-30 12:32] LABS: Absolute Lymphocyte Count 2.28 X10^3/uL (0.83-4.51); Absolute Neutrophil Count 5.6 X10^3/uL (2.0-7.7); Basophil# 0.05 X10^3/uL; Basophil% 0.6 % (0-1); Eosinophil# 0.11 X10^3/uL; Eosinophils% 1.3 % (0-5); Hematocrit 44.4 % (40-54); Hemoglobin 14.9 g/dL (13.0-16.5); Lymphocyte # 2.28 X10^3/ul (0.83-4.51); Lymphocyte % 26.3 % (19-41); Mean Corp Hgb Conc 33.6 g/dL (32-36); Mean Corpuscular Hgb 28.9 pg (27.0-32.0); Monocyte# 0.65 X10^3/uL; Monocyte% 7.5 % (0-10); NRBC Flagged by Analyzer 0 % (0-5); Neutrophil # 5.55 X10^3/uL (2.7-7.7); Neutrophil % 63.8 % (47-70); Platelet Count 331 K/mm3 (150-450); RBC Distribution Width CV 13.7 % (11.6-14.6); RBC Distribution Width SD 42.6 fl (35.1-43.9); Red Blood Count 5.16 M/mm3 (4.6-6.2); White Blood Count 8.7 K/mm3 (4.4-11.0)
[2021-09-30 13:00] LABS: Hemoglobin A1c 5.8 % (3.8-5.6)
[2021-09-30 13:33] LABS: ALB/GLOB Ratio 1.1 RATIO (0.9-2.4); AST(SGOT) 21 U/L (15-37); Alanine Aminotransfer ALT/SGPT 37 U/L (16-61); Albumin, Serum 3.9 g/dL (3.2-5.0); Alkaline Phosphatase 112 U/L (45-117); Anion Gap 7 (5-15); BUN 23 mg/dL (7-18); BUN/Creat Ratio 24.7 RATIO (10-20); Calcium,Total 9.5 mg/dL (8.5-10.1); Chloride 102 mmol/L (98-107); Cholesterol 228 mg/dL (200); Creatinine, Serum 0.93 mg/dL (0.70-1.30); EST Glomerular Filtration Rate 89 mL/min (>60); Est Glom Filt Rate - Afr Amer 108 mL/min (>60); Globulin 3.6 g/dL (2.2-4.2); Glucose 95 mg/dL (74-106); High Density Lipoprotein 42 mg/dL; PSA,Total - Annual Screen 2.21 ng/mL (0.00-4.00); Protein, Total 7.5 g/dL (6.4-8.2); Sodium Level 137 mmol/L (136-145); Triglycerides 144 mg/dL; Very Low Density Lipoprotein 29 mg/dL (5-40)
[2021-09-30 13:58] LABS: Microalbumin,Random Urine 22.1 mg/L (NO RANGE EST.); Microalbumin:Creatinine Ratio 23.9 mg/g CRE (<30 mg/g CRE)
== END | disposition home or self-care (01) ==
LOC: MFPLAB 11:19
PROVIDERS: PCP Family Medicine; Referring Provider Family Medicine; Visit Provider Family Medicine
DX: Z00.00 Encounter for general adult medical examination without abnormal findings (principal); I27.20 Pulmonary hypertension, unspecified; E66.01 Morbid (severe) obesity due to excess calories; Z68.41 Body mass index [BMI] 40.0-44.9, adult; R73.03 Prediabetes; G47.30 Sleep apnea, unspecified; Z20.822 Contact with and (suspected) exposure to COVID-19; Z12.5 Encounter for screening for malignant neoplasm of prostate
CPT/HCPCS: 84153; 36415; 80053; 80061; 82043; 82570; 83036; 85025; G0103

== ENCOUNTER → 2022-06-23 | Outpatient (CLI) | payer MEDICAID, SELFPAY ==
[2022-06-23 12:49] LABS: Absolute Lymphocyte Count 1.92 X10^3/uL (0.83-4.51); Basophil# 0.06 X10^3/uL; Basophil% 0.8 % (0-1); Eosinophil# 0.13 X10^3/uL; Eosinophils% 1.7 % (0-5); Hematocrit 45.3 % (40-54); Hemoglobin 15.1 g/dL (13.0-16.5); Lymphocyte # 1.92 X10^3/ul (0.83-4.51); Mean Corp Hgb Conc 33.3 g/dL (32-36); Mean Corpuscular Hgb 28.3 pg (27.0-32.0); Mean Platelet Vol. 10.8 fl (6.2-12.0); Monocyte# 0.56 X10^3/uL; Monocyte% 7.3 % (0-10); NRBC Flagged by Analyzer 0 % (0-5); Neutrophil # 4.99 X10^3/uL (2.7-7.7); Neutrophil % 64.8 % (47-70); Platelet Count 307 K/mm3 (150-450); RBC Distribution Width CV 13.2 % (11.6-14.6); Red Blood Count 5.33 M/mm3 (4.6-6.2); White Blood Count 7.7 K/mm3 (4.4-11.0)
[2022-06-23 13:21] LABS: ALB/GLOB Ratio 0.9 RATIO (0.9-2.4); AST(SGOT) 18 U/L (15-37); Alanine Aminotransfer ALT/SGPT 38 U/L (16-61); Albumin, Serum 3.6 g/dL (3.2-5.0); Alkaline Phosphatase 114 U/L (45-117); Anion Gap 5 (5-15); BUN 24 mg/dL (7-18); BUN/Creat Ratio 25.6 RATIO (10-20); Calcium,Total 9.5 mg/dL (8.5-10.1); Chloride 104 mmol/L (98-107); Cholesterol 202 mg/dL (200); Creatinine, Serum 0.94 mg/dL (0.70-1.30); EST Glomerular Filtration Rate 88 mL/min (>60); Est Glom Filt Rate - Afr Amer 107 mL/min (>60); Glucose 116 mg/dL (74-106); High Density Lipoprotein 40 mg/dL; Potassium 3.8 mmol/L (3.5-5.1); Protein, Total 7.6 g/dL (6.4-8.2); Sodium Level 134 mmol/L (136-145); Triglycerides 181 mg/dL; Very Low Density Lipoprotein 36 mg/dL (5-40)
== END | disposition home or self-care (01) ==
LOC: MFPLAB 10:07
PROVIDERS: PCP Family Medicine; Visit Provider Family Medicine
DX: R73.03 Prediabetes (principal); I27.20 Pulmonary hypertension, unspecified; E66.01 Morbid (severe) obesity due to excess calories; Z68.41 Body mass index [BMI] 40.0-44.9, adult; I10 Essential (primary) hypertension
CPT/HCPCS: 36415; 80053; 80061; 85025

== ENCOUNTER → 2022-12-10 | Outpatient (CLI) | payer MEDICAID, SELFPAY ==
[2022-12-10 17:41] LABS: Absolute Neutrophil Count 6.5 X10^3/uL (2.0-7.7); Basophil# 0.06 X10^3/uL; Basophil% 0.6 % (0-1); Eosinophil# 0.07 X10^3/uL; Eosinophils% 0.7 % (0-5); Hematocrit 44.9 % (40-54); Hemoglobin 14.4 g/dL (13.0-16.5); Lymphocyte % 25.5 % (19-41); Mean Corp Hgb Conc 32.1 g/dL (32-36); Mean Corpuscular Hgb 27.5 pg (27.0-32.0); Mean Corpuscular Volume 85.9 fL (80-94); Mean Platelet Vol. 11.1 fl (6.2-12.0); Monocyte# 0.64 X10^3/uL; Monocyte% 6.5 % (0-10); NRBC Flagged by Analyzer 0 % (0-5); Neutrophil % 66.5 % (47-70); Platelet Count 348 K/mm3 (150-450); RBC Distribution Width CV 13.5 % (11.6-14.6); RBC Distribution Width SD 42.2 fl (35.1-43.9); Red Blood Count 5.23 M/mm3 (4.6-6.2); White Blood Count 9.8 K/mm3 (4.4-11.0)
[2022-12-10 18:24] LABS: Microalbumin,Random Urine 28.5 mg/L (NO RANGE EST.); Microalbumin:Creatinine Ratio 16.6 mg/g CRE (<30 mg/g CRE)
[2022-12-10 18:28] LABS: ALB/GLOB Ratio 0.9 RATIO (0.9-2.4); AST(SGOT) 15 U/L (15-37); Alanine Aminotransfer ALT/SGPT 29 U/L (16-61); Albumin, Serum 3.6 g/dL (3.2-5.0); Alkaline Phosphatase 121 U/L (45-117); Anion Gap 7 (5-15); BUN 23 mg/dL (7-18); BUN/Creat Ratio 22.1 RATIO (10-20); Calcium,Total 8.9 mg/dL (8.5-10.1); Chloride 104 mmol/L (98-107); Creatinine, Serum 1.04 mg/dL (0.70-1.30); EST Glomerular Filtration Rate 78 mL/min (>60); Est Glom Filt Rate - Afr Amer 94 mL/min (>60); Glucose 87 mg/dL (74-106); PSA,Total - Annual Screen 2.01 ng/mL (0.00-4.00); Potassium 3.4 mmol/L (3.5-5.1); Protein, Total 7.6 g/dL (6.4-8.2); Sodium Level 136 mmol/L (136-145)
[2022-12-10 18:44] LABS: Hemoglobin A1c 5.9 % (3.8-5.6)
[2022-12-10 18:59] LABS: Hepatitis C Antibody Non-Reactive (Nonreactive)
== END | disposition home or self-care (01) ==
LOC: MFPLAB 15:14
PROVIDERS: PCP Family Medicine; Visit Provider Family Medicine
DX: Z00.00 Encounter for general adult medical examination without abnormal findings (principal); E66.01 Morbid (severe) obesity due to excess calories; Z68.41 Body mass index [BMI] 40.0-44.9, adult; L40.9 Psoriasis, unspecified; Z12.5 Encounter for screening for malignant neoplasm of prostate; R73.03 Prediabetes
CPT/HCPCS: 84153; 36415; 80053; 82043; 82570; 83036; 85025; 86803; G0103

== ENCOUNTER → 2023-06-08 | Outpatient (CLI) | payer MEDICAID, SELFPAY ==
[2023-06-08 17:45] LABS: Absolute Lymphocyte Count 2.38 X10^3/uL (0.83-4.51); Absolute Neutrophil Count 6.4 X10^3/uL (2.0-7.7); Basophil# 0.06 X10^3/uL; Basophil% 0.6 % (0-1); Eosinophil# 0.08 X10^3/uL; Eosinophils% 0.8 % (0-5); Hemoglobin 14.4 g/dL (13.0-16.5); Lymphocyte # 2.38 X10^3/ul (0.83-4.51); Lymphocyte % 24.9 % (19-41); Mean Corp Hgb Conc 32.7 g/dL (32-36); Mean Corpuscular Hgb 27.7 pg (27.0-32.0); Mean Corpuscular Volume 84.6 fL (80-94); Mean Platelet Vol. 11.4 fl (6.2-12.0); Monocyte# 0.61 X10^3/uL; Monocyte% 6.4 % (0-10); NRBC Flagged by Analyzer 0 % (0-5); Neutrophil # 6.38 X10^3/uL (2.7-7.7); Platelet Count 323 K/mm3 (150-450); RBC Distribution Width CV 13.5 % (11.6-14.6); White Blood Count 9.5 K/mm3 (4.4-11.0)
[2023-06-08 18:03] LABS: Microalbumin,Random Urine 53.6 mg/L (NO RANGE EST.); Microalbumin:Creatinine Ratio 29.3 mg/g CRE (<30 mg/g CRE)
[2023-06-08 18:09] LABS: Hemoglobin A1c 5.8 % (3.8-5.6)
[2023-06-08 18:22] LABS: AST(SGOT) 18 U/L (15-37); Alanine Aminotransfer ALT/SGPT 31 U/L (16-61); Albumin, Serum 3.8 g/dL (3.2-5.0); Alkaline Phosphatase 113 U/L (45-117); Anion Gap 8 (5-15); BUN 17 mg/dL (7-18); BUN/Creat Ratio 18.3 RATIO (10-20); Calcium,Total 9.5 mg/dL (8.5-10.1); Chloride 106 mmol/L (98-107); Creatinine, Serum 0.93 mg/dL (0.70-1.30); EST Glomerular Filtration Rate 89 mL/min (>60); Est Glom Filt Rate - Afr Amer 108 mL/min (>60); Glucose 88 mg/dL (74-106); Potassium 3.8 mmol/L (3.5-5.1); Protein, Total 7.8 g/dL (6.4-8.2); Sodium Level 138 mmol/L (136-145)
== END | disposition home or self-care (01) ==
LOC: MFPLAB 14:11
PROVIDERS: PCP Family Medicine; Visit Provider Family Medicine
DX: R73.03 Prediabetes (principal); I27.20 Pulmonary hypertension, unspecified; E66.01 Morbid (severe) obesity due to excess calories; I10 Essential (primary) hypertension
CPT/HCPCS: 36415; 80053; 82043; 82570; 83036; 84443; 85025

== ENCOUNTER → 2023-12-14 | Outpatient (CLI) | payer MEDICAID, SELFPAY ==
[2023-12-14 17:25] LABS: Absolute Lymphocyte Count 2.45 X10^3/uL (0.83-4.51); Absolute Neutrophil Count 6.2 X10^3/uL (2.0-7.7); Basophil# 0.04 X10^3/uL; Basophil% 0.4 % (0-1); Eosinophil# 0.09 X10^3/uL; Eosinophils% 0.9 % (0-5); Hematocrit 45.6 % (40-54); Hemoglobin 15.2 g/dL (13.0-16.5); Lymphocyte # 2.45 X10^3/ul (0.83-4.51); Lymphocyte % 25.7 % (19-41); Mean Corp Hgb Conc 33.3 g/dL (32-36); Mean Corpuscular Hgb 28.1 pg (27.0-32.0); Mean Corpuscular Volume 84.3 fL (80-94); Mean Platelet Vol. 11.5 fl (6.2-12.0); Monocyte# 0.72 X10^3/uL; Monocyte% 7.5 % (0-10); NRBC Flagged by Analyzer 0 % (0-5); Neutrophil # 6.21 X10^3/uL (2.7-7.7); Neutrophil % 65.2 % (47-70); Platelet Count 325 K/mm3 (150-450); RBC Distribution Width CV 13.3 % (11.6-14.6); RBC Distribution Width SD 40.7 fl (35.1-43.9); Red Blood Count 5.41 M/mm3 (4.6-6.2); White Blood Count 9.5 K/mm3 (4.4-11.0)
[2023-12-14 17:42] LABS: ALB/GLOB Ratio 0.9 RATIO (0.9-2.4); AST(SGOT) 14 U/L (15-37); Alanine Aminotransfer ALT/SGPT 27 U/L (16-61); Albumin, Serum 3.7 g/dL (3.2-5.0); Alkaline Phosphatase 125 U/L (45-117); Anion Gap 8 (5-15); BUN 18 mg/dL (7-18); BUN/Creat Ratio 20.7 RATIO (10-20); Calcium,Total 9.2 mg/dL (8.5-10.1); Chloride 105 mmol/L (98-107); Cholesterol 180 mg/dL (200); Creatinine, Serum 0.87 mg/dL (0.70-1.30); EST Glomerular Filtration Rate 96 mL/min (>60); Est Glom Filt Rate - Afr Amer 116 mL/min (>60); Globulin 3.9 g/dL (2.2-4.2); Glucose 87 mg/dL (74-106); High Density Lipoprotein 46 mg/dL; Potassium 3.6 mmol/L (3.5-5.1); Protein, Total 7.6 g/dL (6.4-8.2); Sodium Level 138 mmol/L (136-145); Triglycerides 154 mg/dL; Very Low Density Lipoprotein 31 mg/dL (5-40)
[2023-12-14 17:45] LABS: Hemoglobin A1c 5.9 % (3.8-5.6)
[2023-12-14 17:53] LABS: Microalbumin:Creatinine Ratio 49.1 mg/g CRE (<30 mg/g CRE)
== END | disposition home or self-care (01) ==
LOC: MFPLAB 14:55
PROVIDERS: PCP Family Medicine; Visit Provider Family Medicine
DX: I10 Essential (primary) hypertension (principal); L40.9 Psoriasis, unspecified; E78.5 Hyperlipidemia, unspecified; R73.03 Prediabetes
CPT/HCPCS: 36415; 80053; 80061; 82043; 82570; 83036; 85025

== ENCOUNTER → 2024-06-13 | Outpatient (CLI) | payer MEDICAID, SELFPAY ==
[2024-06-13 17:49] LABS: Absolute Lymphocyte Count 2.38 X10^3/uL (0.83-4.51); Absolute Neutrophil Count 5.9 X10^3/uL (2.0-7.7); Basophil# 0.06 X10^3/uL; Basophil% 0.7 % (0-1); Eosinophil# 0.07 X10^3/uL; Eosinophils% 0.8 % (0-5); Hematocrit 44.8 % (40-54); Hemoglobin 14.9 g/dL (13.0-16.5); Lymphocyte # 2.38 X10^3/ul (0.83-4.51); Lymphocyte % 26.4 % (19-41); Mean Corp Hgb Conc 33.3 g/dL (32-36); Mean Corpuscular Hgb 28.1 pg (27.0-32.0); Mean Corpuscular Volume 84.5 fL (80-94); Mean Platelet Vol. 10.8 fl (6.2-12.0); Monocyte# 0.62 X10^3/uL; Monocyte% 6.9 % (0-10); NRBC Flagged by Analyzer 0 % (0-5); Neutrophil # 5.86 X10^3/uL (2.7-7.7); Neutrophil % 64.9 % (47-70); Platelet Count 335 K/mm3 (150-450); RBC Distribution Width CV 13.5 % (11.6-14.6); RBC Distribution Width SD 41.6 fl (35.1-43.9)
[2024-06-13 18:32] LABS: Hemoglobin A1c 6.4 % (<=5.6)
[2024-06-13 18:33] LABS: ALB/GLOB Ratio 1.2 RATIO (0.9-2.4); AST(SGOT) 25 U/L (<=37); Alanine Aminotransfer ALT/SGPT 35 U/L (<=46); Albumin, Serum 4.2 g/dL (3.5-5.0); Alkaline Phosphatase 120 U/L (40-129); Anion Gap 14 (5-15); BUN 21 mg/dL (4-19); BUN/Creat Ratio 25.7 RATIO (10-20); Calcium,Total 9.5 mg/dL (7.6-11.0); Carbon Dioxide 21.2 mmol/L (21.0-32.0); Chloride 102 mmol/L (98-108); EST Glomerular Filtration Rate 102 (>60); Globulin 3.5 g/dL (2.2-4.2); Glucose 94 mg/dL (70-99); Potassium 3.8 mmol/L (3.3-5.1); Protein, Total 7.7 g/dL (5.9-8.4); Sodium Level 137 mmol/L (133-145); Total Bilirubin 0.48 mg/dL (0.00-1.30)
[2024-06-13 18:49] LABS: Microalbumin:Creatinine Ratio 485.1 mg/g CRE
== END | disposition home or self-care (01) ==
LOC: MFPLAB 14:26
PROVIDERS: PCP Family Medicine; Referring Provider Family Medicine; Visit Provider Family Medicine
DX: I10 Essential (primary) hypertension (principal); I27.20 Pulmonary hypertension, unspecified; R73.03 Prediabetes
CPT/HCPCS: 36415; 80053; 82043; 82570; 83036; 85025

== ENCOUNTER → 2024-09-21 | Outpatient (CLI) | payer MEDICAID, SELFPAY ==
[2024-09-21 15:24] LABS: Hematocrit 42.2 % (40-54); Hemoglobin 14.4 g/dL (13.0-16.5); Immature Granulocytes Count 0.030 X10^3/uL (0.0-0.0); Mean Corp Hgb Conc 34.1 g/dL (32-36); Mean Corpuscular Volume 83.4 fL (80-94); Mean Platelet Vol. 10.8 fl (6.2-12.0); NRBC Flagged by Analyzer 0 % (0-5); Platelet Count 316 K/mm3 (150-450); RBC Distribution Width CV 13.5 % (11.6-14.6); RBC Distribution Width SD 40.8 fl (35.1-43.9); Red Blood Count 5.06 M/mm3 (4.6-6.2); White Blood Count 9.5 K/mm3 (4.4-11.0)
[2024-09-21 16:37] LABS: AST(SGOT) 27 U/L (<=37); Alanine Aminotransfer ALT/SGPT 32 U/L (<=46); Albumin, Serum 4.2 g/dL (3.5-5.0); Alkaline Phosphatase 113 U/L (40-129); Anion Gap 13 (5-15); BUN 26 mg/dL (4-19); BUN/Creat Ratio 24.7 RATIO (10-20); Calcium,Total 9.8 mg/dL (7.6-11.0); Carbon Dioxide 25.6 mmol/L (21.0-32.0); Chloride 99 mmol/L (98-108); Globulin 3.5 g/dL (2.2-4.2); Glucose 98 mg/dL (70-99); Potassium 3.5 mmol/L (3.3-5.1)
== END | disposition home or self-care (01) ==
LOC: MFPLAB 13:59
PROVIDERS: PCP Family Medicine; Referring Provider Family Medicine; Visit Provider Family Medicine
DX: I10 Essential (primary) hypertension (principal); R73.03 Prediabetes
CPT/HCPCS: 36415; 80053; 83036; 85025

== ENCOUNTER → 2024-12-27 | Outpatient (CLI) | payer MEDICAID, SELFPAY ==
[2024-12-27 18:34] LABS: Hematocrit 43.6 % (40-54); Hemoglobin 15.0 g/dL (13.0-16.5); Immature Granulocytes Count 0.020 X10^3/uL (0.0-0.0); Mean Corp Hgb Conc 34.4 g/dL (32-36); Mean Corpuscular Volume 83.8 fL (80-94); Mean Platelet Vol. 10.9 fl (6.2-12.0); NRBC Flagged by Analyzer 0 % (0-5); Platelet Count 323 K/mm3 (150-450); RBC Distribution Width CV 13.5 % (11.6-14.6); RBC Distribution Width SD 41.9 fl (35.1-43.9); Red Blood Count 5.20 M/mm3 (4.6-6.2); White Blood Count 9.5 K/mm3 (4.4-11.0)
[2024-12-27 18:35] LABS: Creatinine, Urine (random) 218.00 mg/dL (39.00-259.00); Microalbumin,Random Urine 22.8 mg/L (<20 mg/L)
[2024-12-27 18:47] LABS: AST(SGOT) 19 U/L (<=37); Alanine Aminotransfer ALT/SGPT 25 U/L (<=46); Albumin, Serum 4.3 g/dL (3.5-5.0); Alkaline Phosphatase 97 U/L (40-129); Anion Gap 13 (5-15); BUN 23 mg/dL (4-19); BUN/Creat Ratio 25.0 RATIO (10-20); Calcium,Total 9.6 mg/dL (7.6-11.0); Carbon Dioxide 23.5 mmol/L (21.0-32.0); Chloride 99 mmol/L (98-108); Globulin 3.2 g/dL (2.2-4.2); Glucose 88 mg/dL (70-99); Potassium 3.7 mmol/L (3.3-5.1)
== END | disposition home or self-care (01) ==
LOC: MFPLAB 14:34
PROVIDERS: PCP Family Medicine; Visit Provider Family Medicine
DX: E11.8 Type 2 diabetes mellitus with unspecified complications (principal); L40.9 Psoriasis, unspecified
CPT/HCPCS: 36415; 80053; 82043; 82570; 83036; 84443; 85025